=== PATIENT | male | born 1955 | race Caucasian/White ===

== ENCOUNTER 2016-09-23 10:11 | Emergency (ER) | payer MEDICARE ==
[~2016-09-23] VITALS: Ht 167.6 cm; Wt 70.0 kg
[~2016-09-23 10:11] MED LIST: ABIL5TAB PO; ALBU1AER INH; CLOT1%T TOPICAL; DEPA500T3 PO; GLUCTAB PO; LISI5 PO; SODI1 PO; TRIF1TAB2 PO; ZOCO40TA PO; ZOLP10TA3 PO
[2016-09-23 10:13] VITALS: BP 156/72; PULSE 80; RESP 20; TEMP 97.9; O2SAT 99
== END 2016-09-23 12:00 | disposition left against medical advice (07) ==
LOC: NED 10:11
DX: F40.8 Other phobic anxiety disorders (principal)
CPT/HCPCS: 99281

== ENCOUNTER 2017-03-17 09:32 | Emergency (ER) | payer MEDICARE, OTHER ==
[~2017-03-17] VITALS: Ht 175.3 cm; Wt 75.0 kg
[2017-03-17 09:36] VITALS: BP 168/84; PULSE 84; RESP 16; TEMP 98.1; O2SAT 98
[2017-03-17 10:55] LABS: AUTOMATED NEUTROPHIL # 4.6 TH/MM3 (1.8-7.7); BASOPHIL % 0.2 % (0.0-2.0); EOSINOPHIL # 0.3 TH/MM3 (0-0.4); EOSINOPHIL % 4.5 % (0.0-4.0); HEMATOCRIT 42.9 % (39.0-51.0); HEMO FLAGS DIFF FINAL; LYMPH % 20.5 % (9.0-44.0); LYMPHOCYTE # 1.4 TH/MM3 (1.0-4.8); MEAN CELL VOLUME 93.4 FL (80.0-100.0); MEAN CORPUSCULAR HEMOGLOBIN 32.7 PG (27.0-34.0); MONO % 9.6 % (0.0-8.0); NEUT % 65.2 % (16.0-70.0); PLATELET COUNT 144 TH/MM3 (150-450); RED BLOOD COUNT 4.59 MIL/MM3 (4.50-5.90); RED CELL DISTRIBUTION WIDTH 13.7 % (11.6-17.2)
[2017-03-17] MEDS ORDERED: LISI40TA PO (10:59)
[2017-03-17] MEDS ORDERED: VENTAER INH (10:59)
[2017-03-17] MEDS ORDERED: SODI1TAB PO (10:59)
[2017-03-17] MEDS ORDERED: SIMV40TA PO (10:59)
[2017-03-17] MEDS ORDERED: TRIF10TA PO (10:59)
[2017-03-17] MEDS ORDERED: ARTI1SOL3 EACH EYE (10:59)
[2017-03-17] MEDS ORDERED: HALO2TAB PO (10:59)
[2017-03-17] MEDS ORDERED: FLUT1SPR5 EACH NARE (10:59)
[2017-03-17] MEDS ORDERED: ARIP1TAB14 PO (10:59)
[2017-03-17] MEDS ORDERED: METO50TA PO (10:59)
[2017-03-17] MEDS ORDERED: OMEP20TA PO (10:59)
[2017-03-17] MEDS ORDERED: DEPA500T3 PO (10:59)
[2017-03-17 11:14] LABS: ANION GAP 9 MEQ/L (5-15); BICARBONATE 27.5 MEQ/L (21.0-32.0); BLOOD UREA NITROGEN 5 MG/DL (7-18); CHLORIDE 98 MEQ/L (98-107); GLOMERULAR FILTRATION RATE 123 ML/MIN (>89); POTASSIUM 4.4 MEQ/L (3.5-5.1); SODIUM (NA) 134 MEQ/L (136-145)
[2017-03-17 11:18] LABS: ALCOHOL LESS THAN 3 MG/DL (0-5)
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
[2017-03-17 12:31] VITALS: BP 145/71
--- NOTE | 2017-03-17 12:58 | PD ---
Data Data Last Documented VS Vital Signs Date Time Temp Pulse Resp B/P (MAP) Pulse Ox O2 Delivery O2 Flow Rate FiO2 03/17/17 12:31 67 18 145/71 (95) 98 03/17/17 09:36 98.1 Orders Orders Complete Blood Count With Diff (03/17/17 10:16) ^ Insert Iv (03/17/17 10:16) Basic Metabolic Panel (Bmp) (03/17/17 10:16) Drug Screen, Random Urine (03/17/17 10:16) Alcohol (Ethanol) (03/17/17 10:16) Labs Laboratory Tests Test 03/17/17 10:40 03/17/17 10:45 Urine Opiates Screen NEG Urine Barbiturates Screen NEG Urine Amphetamines Screen NEG Urine Benzodiazepines Screen NEG Urine Cocaine Screen NEG Urine Cannabinoids Screen NEG White Blood Count 7.0 TH/MM3 Red Blood Count 4.59 MIL/MM3 Hemoglobin 15.0 GM/DL Hematocrit 42.9 % Mean Corpuscular Volume 93.4 FL Mean Corpuscular Hemoglobin 32.7 PG Mean Corpuscular Hemoglobin Concent 35.0 % Red Cell Distribution Width 13.7 % Platelet Count 144 TH/MM3 Mean Platelet Volume 7.8 FL Neutrophils (%) (Auto) 65.2 % Lymphocytes (%) (Auto) 20.5 % Monocytes (%) (Auto) 9.6 % Eosinophils (%) (Auto) 4.5 % Basophils (%) (Auto) 0.2 % Neutrophils # (Auto) 4.6 TH/MM3 Lymphocytes # (Auto) 1.4 TH/MM3 Monocytes # (Auto) 0.7 TH/MM3 Eosinophils # (Auto) 0.3 TH/MM3 Basophils # (Auto) 0.0 TH/MM3 CBC Comment DIFF FINAL Differential Comment Blood Urea Nitrogen 5 MG/DL Creatinine 0.66 MG/DL Random Glucose 101 MG/DL Calcium Level 8.5 MG/DL Sodium Level 134 MEQ/L Potassium Level 4.4 MEQ/L Chloride Level 98 MEQ/L Carbon Dioxide Level 27.5 MEQ/L Anion Gap 9 MEQ/L Estimat Glomerular Filtration Rate 123 ML/MIN Ethyl Alcohol Level LESS THAN 3 MG/DL MDM Supervised Visit with [facility]: Yes Narrative Course The history, exam, and medical decision-making in the associated midlevel provider note were completed with my assistance. I reviewed and agree with the findings presented. I attest that I had a [id number] encounter with the patient on the same day, and personally performed and documented my assessment and findings in the medical record. *My assessment and Findings: This is a 61-year-old male who has a history of schizophrenia who presents to the emergency department just needing someplace to stay for a while. He says he was getting frustrated his house. He denies any suicidal ideation or homicidal ideation. He appears safe and is not decompensated. He follows up with [facility]. I think he can safely be discharged. Diagnosis Primary Impression: Paranoid schizophrenia Referrals: [facility] (Out patient) [facility] Patient Instructions: General Instructions, Schizoaffective Disorder (ED) Departure Forms: Tests/Procedures Additional Instruction: [facility] for follow-up Continue medication as prescribed Return immediately with any acute worsening of symptoms Disposition: 01 DISCHARGE HOME Condition: Stable Sara Lockett MD Mar 17, 2017 12:58
== END 2017-03-17 12:40 | disposition home or self-care (01) ==
LOC: NEPD 09:32
DX: F20.0 Paranoid schizophrenia (principal)
CPT/HCPCS: 80048; 80307; 85025; 99283

== ENCOUNTER 2018-05-25 21:08 | Inpatient (IN) ==
[2018-05-25] MEDS ORDERED: Sod Chloride 0.9% Inj 1,000 ML IV.CONT SCH (21:45)
--- NOTE | 2018-05-25 21:49 | CT ---
EXAM DATE: 05/25/2018 9:44 PM EST AGE/SEX: 62 years / Male INDICATIONS: STROKE ALERT. Altered mental status. Gargled speech. CLINICAL DATA: This is the patient's initial encounter. Patient reports that signs and symptoms have been present for 1 day and indicates a pain score of Nonresponsive. MEDICAL/SURGICAL HISTORY: Non-responsive. Non-responsive. RADIATION DOSE: 56.35 CTDI (mGy) COMPARISON: No prior exams available for comparison. TECHNIQUE: CT of the head without contrast. Using automated exposure control and adjustment of the mA and/or kV according to patient size, radiation dose was kept as low as reasonably achievable to ob tain optimal diagnostic quality images. DICOM format image data is available electronically for revi ew and comparison. FINDINGS: Cerebrum: The ventricles are normal for age. No evidence of midline shift, mass lesion, hemorrhage o r acute infarction. No extraaxial fluid collections are seen. Posterior Fossa: The cerebellum and brainstem are intact. The 4th ventricle is midline. The cerebe llopontine angle is unremarkable. Extracranial: The visualized portion of the orbits is intact. Skull: The calvaria is intact. No evidence of skull fracture. CONCLUSION: 1. No acute intracranial abnormality. Report was called by Dr. Simon to Dr. Bailon 9:46 PM] Electronically signed by: Charlie Salcido MD Board Certified Radiologist 05/25/2018 9:47 PM [facility] Deleon
--- NOTE | 2018-05-25 21:58 | CT ---
EXAM DATE: 05/25/2018 9:55 PM EST AGE/SEX: 62 years / Male INDICATIONS: STROKE ALERT. Altered mental status. Garbled speech. CLINICAL DATA: This is the patient's initial encounter. Patient reports that signs and symptoms have been present for 1 day and indicates a pain score of Nonresponsive. MEDICAL/SURGICAL HISTORY: Non-responsive. Non-responsive. RADIATION DOSE: 217.64 CTDI (mGy) COMPARISON: No prior exams available for comparison. TECHNIQUE: CT of the head after intravenous administration of 40 ml Visipaque 320 (iodixanol) nonio salma water-soluble contrast as a single exam dose. Using automated exposure control and adjustment of the mA and/or kV according to patient size, radiation dose was kept as low as reasonably achievable to obtain optimal diagnostic quality images. DICOM format image data is available electronically for review and comparison. FINDINGS: 1. CBF (<30%) Volume (ml): 0 2. Perfusion (Tmax>6.0s) Volume (ml): 0 3. Mismatch Volume (ml) (Tmax>6.0 - CBF): 0 CONCLUSION: Physiological brain perfusion parameters with RAPID analysis as above. The decision for consideration of therapy is multi factorial and multi disciplinary relying on subjec tive and objective clinical data. This data is not construed or intended to be the sole determinant of treatment eligibility. Electronically signed by: Charlie Salcido MD Board Certified Radiologist 05/25/2018 9:56 PM MIKO Deleon
--- NOTE | 2018-05-25 21:58 | CT ---
EXAM DATE: 05/25/2018 9:53 PM EST AGE/SEX: 62 years / Male INDICATIONS: STROKE ALERT. Altered mental status. Garbled speech. CLINICAL DATA: This is the patient's initial encounter. Patient reports that signs and symptoms have been present for 1 day and indicates a pain score of Nonresponsive. MEDICAL/SURGICAL HISTORY: Non-responsive. Non-responsive. RADIATION DOSE: 9.82 CTDI (mGy) COMPARISON: [facility] – [place] CEREBRAL PERF W CONTRAST W 3D, 05/25/2018. . TECHNIQUE: Volumetric scanning was performed using a multi-row detector CT scanner during bolus infu rashawn of 60 ml Visipaque 320 (iodixanol) nonionic water-soluble contrast as a cumulative dose for mul tiple exams. The data was post processed with a variety of visualization algorithms including full volume maximum intensity projection, multi-planar sliding thin slab reformation, curved planar reform ation, and surface rendering techniques. Using automated exposure control and adjustment of the mA a nd/or kV according to patient size, radiation dose was kept as low as reasonably achievable to obtain optimal diagnostic quality images. DICOM format image data is available electronically for review a nd comparison. FINDINGS: Anterior Circulation: Intracranial Carotid Arteries: Patent. CARINA: There is no evidence for aneurysm, vessel truncation or stenosis, and no evidence for vascular m alformation. MCA: There is no evidence for aneurysm, vessel truncation or stenosis, and no evidence for vascular m alformation. Posterior Circulation: Distal Vertebral Arteries: Distal Vertebral arteries are symetrical and patent. Basilar Artery: There is no evidence for aneurysm, vessel truncation or stenosis, and no evidence for vascular malformation. CLASS B DRIVER and Cerebellar Branches: There is no evidence for aneurysm, vessel truncation or stenosis, and no evidence for vascular malformation. CONCLUSION: 1. Negative CTA examination of the head. Specifically, no evidence for large vessel occlusion. Report was called by [ ] Dr. Simon to Dr. Clayton at 9:55 PM. Electronically signed by: Charlie Salcido MD Board Certified Radiologist 05/25/2018 9:56 PM MIKO Deleon
--- NOTE | 2018-05-25 22:10 | CT ---
EXAM DATE: 05/25/2018 10:03 PM EST AGE/SEX: 62 years / Male INDICATIONS: STROKE ALERT. Altered mental status. Garbled speech. CLINICAL DATA: This is the patient's initial encounter. Patient reports that signs and symptoms have been present for 1 day and indicates a pain score of Nonresponsive. MEDICAL/SURGICAL HISTORY: Non-responsive. Non-responsive. RADIATION DOSE: 9.82 CTDI (mGy) COMPARISON: No prior exams available for comparison. TECHNIQUE: Volumetric scanning was performed using a multirow detector CT scanner during bolus infus ion of 60 ml Omnipaque 350 (iohexol) nonionic water-soluble contrast as a single exam dose. The da ta was postprocessed with a variety of visualization algorithms including full-volume maximum intensi ty projection, multiplanar sliding thin-slab reformation, curved-planar reformation, and surface-rend ering techniques. Using automated exposure control and adjustment of the mA and/or kV according to p atient size, radiation dose was kept as low as reasonably achievable to obtain optimal diagnostic juhi lity images. DICOM format image data is available electronically for review and comparison. FINDINGS: Aortic Arch: Minimal calcific plaque is seen origin of the arch vessels. Right Carotid: There is calcific plaque origin of the right internal carotid without soft component compromise the lumen by less than 50%. Left Carotid: Calcific plaque origin of the left carotid without soft component comprising lumen by less than 50%. Vertebrals: Both vertebrals are small. Basilar artery is patent. Percent stenosis is calculated using the diameter of the stenotic region over the diameter of the nor mal distal internal carotid artery. CONCLUSION: 1. Moderate atherosclerotic calcific vascular disease without hemodynamically significant stenosis, worse on the right than the left. Other calcific plaque I do not see evidence for a source of emboli. Electronically signed by: Rafael Carson MD Board Certified Radiologist 05/25/2018 10:09 PM EST
[2018-05-25] MEDS ORDERED: Naloxone Inj 0.4 MG/ML Vial IV.PUSH ONE (22:11)
--- NOTE | 2018-05-25 22:21 | XR ---
EXAM DATE: 05/25/2018 10:17 PM EST AGE/SEX: 62 years / Male INDICATIONS: Stroke alert. CLINICAL DATA: This is the patient's initial encounter. Patient reports that signs and symptoms have been present for 1 day and indicates a pain score of Nonresponsive. MEDICAL/SURGICAL HISTORY: Non-responsive. Non-responsive. COMPARISON: [facility] – [place], CHEST SINGLE AP, 04/09/2013. . FINDINGS: A single AP view of the chest demonstrates the lungs to be symmetrically aerated without evidence of mass, infiltrate or effusion. The cardiomediastinal contours are unremarkable. Osseous structures a re intact. CONCLUSION: Negative for acute process Electronically signed by: Rafael Casron MD Board Certified Radiologist 05/25/2018 10:19 PM EST
--- NOTE | 2018-05-25 22:31 | ED ---
HPI General Chief Complaint: Stroke Alert Stated Complaint: ams/evac Time Seen by Provider: 05/25/18 21:29 Source: patient and EMS Mode of arrival: EMS Limitations: altered mental status History of Present Illness HPI Narrative: 62-year-old male presents to the emergency department from local intermediate by EMS transport after intermediate staff noticed patient to have some confusion and slurred speech as well as appeared to be slightly off balance with ambulation. Patient's symptoms are noted to have occurred reportedly sometime between 8 to 8:15 PM and 830 to 8:45 PM per special duty nurse report as patient was gone for approximately 30 minutes on a walk outside without supervision. Patient had reportedly been in his normal state of well- being without any acute psychotic events or escalating until health issues. No recent illness. Patient is a resident of intermediate with history of schizophrenia hypertension and diabetes. According to paramedics patient in route to the hospital had some slurring of speech appeared to be mildly somnolent so they administered a one-time dose of Narcan 0.4 mg IV with minimal response. Here patient has definite slurring of speech appears to be mildly confused. Patient with difficulty answering simple questions. Onset (ago): minute(s) Time: 08:40 Last Observed Normal: 08:00 Timing confirmed by: caregiver (longterm staff) Location: Reports speech, ataxia and altered History of same: No Severity: moderate Quality: Reports weak Relieving factors: none Exacerbating factors: other (unknown) Context: Reports other (unknown) On Anticoagulants: No Associated symptoms: Reports seizures (unknown), syncope (unknown) and weakness ; Denies chest pain, cough, diaphoresis, fever/chills, headaches, loss of appetite, malaise, nausea/vomiting and vertigo Treatments Prior to Arrival: Reports other (narcan 0.4 mg iv) Related Data Home Medications Medication Instructions Recorded Confirmed amlodipine 5 mg PO DAILY 05/26/18 05/26/18 aripiprazole 20 mg PO DAILY 05/26/18 05/26/18 divalproex 500 mg PO QID 05/26/18 05/26/18 fluticasone 1 spray INTRANASAL DAILY 05/26/18 05/26/18 metformin 500 mg PO BID 05/26/18 05/26/18 omeprazole 20 mg PO DAILY 05/26/18 05/26/18 terbinafine HCl 250 mg PO DAILY 05/26/18 05/26/18 Allergies Allergy/AdvReac Type Severity Reaction Status Date / Time lithium Allergy Severe PT NOT Verified 05/25/18 22:25 SURE BUT SAYS IT MAKES HIM SICK Phenothiazines Allergy Severe Hives Verified 05/25/18 22:25 bupropion Allergy Unknown Hives Verified 05/25/18 22:25 Review of Systems ROS: all other systems reviewed are negative PMFSH History History Provided By: Medical Record ([facility] records: Hypertension diabetes schizophrenia) 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 NIHSS: 3 SKIN: Focused skin assessment warm/dry. HEAD: Atraumatic. Normocephalic. EYES: Pupils equal and round. No scleral icterus. No injection or drainage. ENT: No nasal bleeding or discharge. Mucous membranes pink and moist. NECK: Trachea midline. No JVD. CARDIOVASCULAR: Regular rate and rhythm. No murmur appreciated. RESPIRATORY: No accessory muscle use. Clear to auscultation. Breath sounds equal bilaterally. GASTROINTESTINAL: Abdomen soft, non-tender, nondistended. Hepatic and splenic margins not palpable. MUSCULOSKELETAL: No obvious deformities. No clubbing. No cyanosis. No edema. NEUROLOGICAL: Awake and alert. No obvious cranial nerve deficits. Motor grossly within normal limits except mild weakness of LLE. Slurred speech and some expressive aphasia. Course Initial Documented Vital Signs Pulse Oximetry 97 05/25/18 21:25 Last Documented Vital Signs Temperature 98.4 F 05/27/18 01:00 Pulse Rate 65 05/27/18 01:30 Respiratory Rate 18 05/26/18 20:00 Blood Pressure 126/59 L 05/27/18 01:30 Pulse Oximetry 92 L 05/27/18 01:30 Medical Decision Making MDM Narrative Medical decision making narrative: 62-year-old male presents to the emergency department by EMS transport after last seen normal approximately 8:15 PM by the reported intermediate staff. Patient reportedly went outside for walking and with visible presents for approximately 30 minutes and when he returned he seemed mildly confused with slurring of speech and some mild gait ataxia. At that point in time EMS was called and upon their arrival around 845 they noted some persistent slurring of speech and some mild gait ataxia. Also noted in route to have some mild worsening somnolent received a one-time dose of Narcan with minimal response or improvement EMS called stroke alert from the field which was carried out into the emergency department. Patient unclear as to source of neurologic findings patient does have history of schizophrenia may have mild exacerbation of underlying mental health condition versus recent trauma versus seizure versus TIA versus CVA versus encephalopathy. Patient's case discussed in detail with on-call neurologist and sent emergently to CT for imaging with CTA and perfusion studies ordered. Unlikely patient will be criterion for TPA. Informed by nursing staff prior to being sent to CT patient yelled out and became aggressive with the staff and required request of physical and chemical restraints. Patient was also reported per paramedics to have some urinary incontinence; this was not originally reported. Discussed patient with neurologist Dr. Clayton. No TPA per Dr Clayton. CT brain noncontrast reveals no acute abnormality per reading radiologist. CTA does reveal no large vessel occlusion. Imaging studies negative for acute process. Patient now very somnolent after receiving Ativan 1 mg IV for marked agitation. Will monitor in the emergency department while patient is metabolizing administered Ativan to see if symptoms of presentation have resolved. Patient continues to be with slurring of speech suspect that symptoms may be related to seizure activity and/or seizure activity and exacerbation of his schizophrenia or just exacerbation of his schizophrenia. Valproic acid level is in therapeutic range of the lab values are grossly within normal limits including urine drug screen being negative. Patient's case discussed with on-call asset protection greeter for ongoing management of encephalopathy. Medical Screen Exam Complete: Yes Emergency Medical Condition: Yes Lab Data Result diagrams: 05/27/18 04:22 05/27/18 04:22 Lab Results 05/25/18 05/25/18 05/25/18 Range/Units 00:34 00:34 21:27 WBC (4.0-11.0) th/mm3 RBC (4.50-5.90) mil/mm3 Hgb (13.0-17.0) gm/dL POC Hgb (Calc) 12.2 L (13.0-17.0) g/dL Hct (39.0-51.0) % POC Hct 36.0 L (39-51.0) % MCV (80.0-100.0) fL MCH (27.0-34.0) pg MCHC (32.0-36.0) % RDW (11.6-17.2) % Plt Count (150-450) th/mm3 MPV (7.0-11.0) fL Neut % (Auto) (16.0-70.0) % Lymph % (Auto) (9.0-44.0) % [place] % (Auto) (0.0-8.0) % Eos % (Auto) (0.0-4.0) % Baso % (Auto) (0.0-2.0) % Neut # (Auto) (1.8-7.7) th/mm3 Lymph # (Auto) (1.0-4.8) th/mm3 [place] # (Auto) (0.0-0.9) th/mm3 Eos # (Auto) (0.0-0.4) th/mm3 Baso # (Auto) (0.0-0.2) th/mm3 WBC Differential Differential Comment PT (9.8-11.6) sec INR Ratio APTT (23.4-31.7) sec Puncture Site Patient Temperature O2 Saturation (90-100) % ABG pH (7.380-7.420) ABG pCO2 (38-42) mmHg ABG pO2 (61-120) mmHg ABG HCO3 (22-26) mmol/L ABG O2 Content (12.0-20.0) Vol % ABG Base Excess (-2-2) mmol/L ABG Methemoglobin (0-2) % Emmanuel Test Hemoglobin (12.0-16.0) G/DL Carboxyhemoglobin (0-4) % O2 Delivery Device Inspired O2 % Critical Value POC Sodium 138 (137-144) mmol/L Sodium 137 (136-145) meq/L POC Potassium 3.7 (3.6-5.0) mmol/L Potassium 3.6 (3.5-5.1) meq/L POC Chloride 98 L (102-111) mmol/L Chloride 102 (98-107) meq/L Carbon Dioxide 27.1 (21.0-32.0) meq/L Anion Gap 8 (5-15) meq/L POC BUN 12 (5-21) mg/dL BUN 11 (7-18) mg/dL Creatinine 0.77 (0.60-1.30) mg/dL POC Creatinine 0.7 (0.6-1.3) mg/dL Estimated GFR Greater than 89 (>89) mL/min POC Glucose 146 H (68-110) mg/dL Random Glucose 146 H (74-106) mg/dL Lactic Acid (0.4-2.0) mmol/L Calcium 8.0 L (8.5-10.1) mg/dL Phosphorus (2.5-4.9) mg/dL Magnesium 1.6 (1.5-2.5) mg/dL Total Bilirubin 0.3 (0.2-1.0) mg/dL AST 14 L (15-37) U/L ALT 18 (12-78) U/L Alkaline Phosphatase 58 (45-117) U/L Ammonia (11-32) mcmol/L Total Creatine Kinase (39-308) U/L Troponin I (0.02-0.05) ng/mL Total Protein 7.0 (6.4-8.2) g/dL Albumin 3.5 (3.4-5.0) g/dL TSH 2.800 (0.358-3.740) uIU/mL Urine Color (Yellw/Straw) Urine Clarity (Clear) Urine pH (5.0-8.5) Ur Specific [place] (1.002-1.035) Urine Protein (Neg-Trace) mg/dL Urine Glucose (UA) (Negative) mg/dL Urine Ketones (Negative) mg/dL Urine Occult Blood (Negative) Urine Nitrate (Negative) Urine Bilirubin (Negative) Urine Urobilinogen (Less than 2) mg/dL Ur Leukocyte Esterase (Negative) Urine RBC (0-3) /hpf Urine WBC (0-5) /hpf Urine Bacteria (None) /hpf Urine Mucus (Occasional) /lpf Micro UA Comment Ur Microscopic Review Urine Culture Comments Nasal Screen MRSA (PCR) (Negative) Salicylates (2.8-20.0) mg/dL Urine Opiates Screen (Neg) Acetaminophen (10.0-30.0) mcg/mL Ur Barbiturates Screen (Neg) Valproic Acid (50-100) mcg/mL Ur Amphetamines Screen (Neg) U Benzodiazepines Scrn (Neg) Urine Cocaine Screen (Neg) U Cannabinoids Screen (Neg) Serum Alcohol Less than 3 (0-5) mg/dL Blood Type Blood Type Recheck Antibody Screen 05/25/18 05/25/18 05/25/18 Range/Units 21:27 21:27 21:27 WBC (4.0-11.0) th/mm3 RBC (4.50-5.90) mil/mm3 Hgb (13.0-17.0) gm/dL POC Hgb (Calc) (13.0-17.0) g/dL Hct (39.0-51.0) % POC Hct (39-51.0) % MCV (80.0-100.0) fL MCH (27.0-34.0) pg MCHC (32.0-36.0) % RDW (11.6-17.2) % Plt Count (150-450) th/mm3 MPV (7.0-11.0) fL Neut % (Auto) (16.0-70.0) % Lymph % (Auto) (9.0-44.0) % [place] % (Auto) (0.0-8.0) % Eos % (Auto) (0.0-4.0) % Baso % (Auto) (0.0-2.0) % Neut # (Auto) (1.8-7.7) th/mm3 Lymph # (Auto) (1.0-4.8) th/mm3 [place] # (Auto) (0.0-0.9) th/mm3 Eos # (Auto) (0.0-0.4) th/mm3 Baso # (Auto) (0.0-0.2) th/mm3 WBC Differential Differential Comment PT (9.8-11.6) sec INR Ratio APTT (23.4-31.7) sec Puncture Site Patient Temperature O2 Saturation (90-100) % ABG pH (7.380-7.420) ABG pCO2 (38-42) mmHg ABG pO2 (61-120) mmHg ABG HCO3 (22-26) mmol/L ABG O2 Content (12.0-20.0) Vol % ABG Base Excess (-2-2) mmol/L ABG Methemoglobin (0-2) % Emmanuel Test Hemoglobin (12.0-16.0) G/DL Carboxyhemoglobin (0-4) % O2 Delivery Device Inspired O2 % Critical Value POC Sodium (137-144) mmol/L Sodium (136-145) meq/L POC Potassium (3.6-5.0) mmol/L Potassium (3.5-5.1) meq/L POC Chloride (102-111) mmol/L Chloride (98-107) meq/L Carbon Dioxide (21.0-32.0) meq/L Anion Gap (5-15) meq/L POC BUN (5-21) mg/dL BUN (7-18) mg/dL Creatinine (0.60-1.30) mg/dL POC Creatinine (0.6-1.3) mg/dL Estimated GFR (>89) mL/min POC Glucose (68-110) mg/dL Random Glucose (74-106) mg/dL Lactic Acid (0.4-2.0) mmol/L Calcium (8.5-10.1) mg/dL Phosphorus (2.5-4.9) mg/dL Magnesium (1.5-2.5) mg/dL Total Bilirubin (0.2-1.0) mg/dL AST (15-37) U/L ALT (12-78) U/L Alkaline Phosphatase (45-117) U/L Ammonia (11-32) mcmol/L Total Creatine Kinase (39-308) U/L Troponin I (0.02-0.05) ng/mL Total Protein (6.4-8.2) g/dL Albumin (3.4-5.0) g/dL TSH (0.358-3.740) uIU/mL Urine Color (Yellw/Straw) Urine Clarity (Clear) Urine pH (5.0-8.5) Ur Specific [place] (1.002-1.035) Urine Protein (Neg-Trace) mg/dL Urine Glucose (UA) (Negative) mg/dL Urine Ketones (Negative) mg/dL Urine Occult Blood (Negative) Urine Nitrate (Negative) Urine Bilirubin (Negative) Urine Urobilinogen (Less than 2) mg/dL Ur Leukocyte Esterase (Negative) Urine RBC (0-3) /hpf Urine WBC (0-5) /hpf Urine Bacteria (None) /hpf Urine Mucus (Occasional) /lpf Micro UA Comment Ur Microscopic Review Urine Culture Comments Nasal Screen MRSA (PCR) (Negative) Salicylates Less than 1.7 L (2.8-20.0) mg/dL Urine Opiates Screen (Neg) Acetaminophen Less than 2.0 L (10.0-30.0) mcg/mL Ur Barbiturates Screen (Neg) Valproic Acid 61 (50-100) mcg/mL Ur Amphetamines Screen (Neg) U Benzodiazepines Scrn (Neg) Urine Cocaine Screen (Neg) U Cannabinoids Screen (Neg) Serum Alcohol (0-5) mg/dL Blood Type A Positive Blood Type Recheck Required Antibody Screen Negative 05/25/18 05/25/18 05/25/18 Range/Units 21:27 21:27 21:27 WBC 5.7 (4.0-11.0) th/mm3 RBC 3.91 L (4.50-5.90) mil/mm3 Hgb 12.7 L (13.0-17.0) gm/dL POC Hgb (Calc) (13.0-17.0) g/dL Hct 37.1 L (39.0-51.0) % POC Hct (39-51.0) % MCV 94.9 (80.0-100.0) fL MCH 32.4 (27.0-34.0) pg MCHC 34.2 (32.0-36.0) % RDW 13.4 (11.6-17.2) % Plt Count 155 (150-450) th/mm3 MPV 7.9 (7.0-11.0) fL Neut % (Auto) 51.1 (16.0-70.0) % Lymph % (Auto) 38.3 (9.0-44.0) % [place] % (Auto) 9.2 H (0.0-8.0) % Eos % (Auto) 1.0 (0.0-4.0) % Baso % (Auto) 0.4 (0.0-2.0) % Neut # (Auto) 2.9 (1.8-7.7) th/mm3 Lymph # (Auto) 2.2 (1.0-4.8) th/mm3 [place] # (Auto) 0.5 (0.0-0.9) th/mm3 Eos # (Auto) 0.1 (0.0-0.4) th/mm3 Baso # (Auto) 0.0 (0.0-0.2) th/mm3 WBC Differential . Differential Comment Auto diff final PT (9.8-11.6) sec INR Ratio APTT (23.4-31.7) sec Puncture Site Patient Temperature O2 Saturation (90-100) % ABG pH (7.380-7.420) ABG pCO2 (38-42) mmHg ABG pO2 (61-120) mmHg ABG HCO3 (22-26) mmol/L ABG O2 Content (12.0-20.0) Vol % ABG Base Excess (-2-2) mmol/L ABG Methemoglobin (0-2) % Emmanuel Test Hemoglobin (12.0-16.0) G/DL Carboxyhemoglobin (0-4) % O2 Delivery Device Inspired O2 % Critical Value POC Sodium (137-144) mmol/L Sodium (136-145) meq/L POC Potassium (3.6-5.0) mmol/L Potassium (3.5-5.1) meq/L POC Chloride (102-111) mmol/L Chloride (98-107) meq/L Carbon Dioxide (21.0-32.0) meq/L Anion Gap (5-15) meq/L POC BUN (5-21) mg/dL BUN (7-18) mg/dL Creatinine (0.60-1.30) mg/dL POC Creatinine (0.6-1.3) mg/dL Estimated GFR (>89) mL/min POC Glucose (68-110) mg/dL Random Glucose (74-106) mg/dL Lactic Acid (0.4-2.0) mmol/L Calcium (8.5-10.1) mg/dL Phosphorus (2.5-4.9) mg/dL Magnesium (1.5-2.5) mg/dL Total Bilirubin (0.2-1.0) mg/dL AST (15-37) U/L ALT (12-78) U/L Alkaline Phosphatase (45-117) U/L Ammonia (11-32) mcmol/L Total Creatine Kinase 91 (39-308) U/L Troponin I Less than 0.02 L (0.02-0.05) ng/mL Total Protein (6.4-8.2) g/dL Albumin (3.4-5.0) g/dL TSH (0.358-3.740) uIU/mL Urine Color (Yellw/Straw) Urine Clarity (Clear) Urine pH (5.0-8.5) Ur Specific [place] (1.002-1.035) Urine Protein (Neg-Trace) mg/dL Urine Glucose (UA) (Negative) mg/dL Urine Ketones (Negative) mg/dL Urine Occult Blood (Negative) Urine Nitrate (Negative) Urine Bilirubin (Negative) Urine Urobilinogen (Less than 2) mg/dL Ur Leukocyte Esterase (Negative) Urine RBC (0-3) /hpf Urine WBC (0-5) /hpf Urine Bacteria (None) /hpf Urine Mucus (Occasional) /lpf Micro UA Comment Ur Microscopic Review Urine Culture Comments Nasal Screen MRSA (PCR) (Negative) Salicylates (2.8-20.0) mg/dL Urine Opiates Screen (Neg) Acetaminophen (10.0-30.0) mcg/mL Ur Barbiturates Screen (Neg) Valproic Acid (50-100) mcg/mL Ur Amphetamines Screen (Neg) U Benzodiazepines Scrn (Neg) Urine Cocaine Screen (Neg) U Cannabinoids Screen (Neg) Serum Alcohol (0-5) mg/dL Blood Type Blood Type Recheck Antibody Screen 05/25/18 05/25/18 05/25/18 Range/Units 21:28 22:21 23:50 WBC (4.0-11.0) th/mm3 RBC (4.50-5.90) mil/mm3 Hgb (13.0-17.0) gm/dL POC Hgb (Calc) (13.0-17.0) g/dL Hct (39.0-51.0) % POC Hct (39-51.0) % MCV (80.0-100.0) fL MCH (27.0-34.0) pg MCHC (32.0-36.0) % RDW (11.6-17.2) % Plt Count (150-450) th/mm3 MPV (7.0-11.0) fL Neut % (Auto) (16.0-70.0) % Lymph % (Auto) (9.0-44.0) % [place] % (Auto) (0.0-8.0) % Eos % (Auto) (0.0-4.0) % Baso % (Auto) (0.0-2.0) % Neut # (Auto) (1.8-7.7) th/mm3 Lymph # (Auto) (1.0-4.8) th/mm3 [place] # (Auto) (0.0-0.9) th/mm3 Eos # (Auto) (0.0-0.4) th/mm3 Baso # (Auto) (0.0-0.2) th/mm3 WBC Differential Differential Comment PT (9.8-11.6) sec INR Ratio APTT (23.4-31.7) sec Puncture Site Right radial Patient Temperature 98.6 O2 Saturation 92 (90-100) % ABG pH 7.42 (7.380-7.420) ABG pCO2 38 (38-42) mmHg ABG pO2 79 (61-120) mmHg ABG HCO3 24 (22-26) mmol/L ABG O2 Content 17.9 (12.0-20.0) Vol % ABG Base Excess 0.2 (-2-2) mmol/L ABG Methemoglobin 0.8 (0-2) % Emmanuel Test Present Hemoglobin 13.9 (12.0-16.0) G/DL Carboxyhemoglobin 3.6 (0-4) % O2 Delivery Device Room air Inspired O2 21 % Critical Value No POC Sodium (137-144) mmol/L Sodium (136-145) meq/L POC Potassium (3.6-5.0) mmol/L Potassium (3.5-5.1) meq/L POC Chloride (102-111) mmol/L Chloride (98-107) meq/L Carbon Dioxide (21.0-32.0) meq/L Anion Gap (5-15) meq/L POC BUN (5-21) mg/dL BUN (7-18) mg/dL Creatinine (0.60-1.30) mg/dL POC Creatinine (0.6-1.3) mg/dL Estimated GFR (>89) mL/min POC Glucose 144 H 128 H (68-110) mg/dL Random Glucose (74-106) mg/dL Lactic Acid (0.4-2.0) mmol/L Calcium (8.5-10.1) mg/dL Phosphorus (2.5-4.9) mg/dL Magnesium (1.5-2.5) mg/dL Total Bilirubin (0.2-1.0) mg/dL AST (15-37) U/L ALT (12-78) U/L Alkaline Phosphatase (45-117) U/L Ammonia (11-32) mcmol/L Total Creatine Kinase (39-308) U/L Troponin I (0.02-0.05) ng/mL Total Protein (6.4-8.2) g/dL Albumin (3.4-5.0) g/dL TSH (0.358-3.740) uIU/mL Urine Color (Yellw/Straw) Urine Clarity (Clear) Urine pH (5.0-8.5) Ur Specific [place] (1.002-1.035) Urine Protein (Neg-Trace) mg/dL Urine Glucose (UA) (Negative) mg/dL Urine Ketones (Negative) mg/dL Urine Occult Blood (Negative) Urine Nitrate (Negative) Urine Bilirubin (Negative) Urine Urobilinogen (Less than 2) mg/dL Ur Leukocyte Esterase (Negative) Urine RBC (0-3) /hpf Urine WBC (0-5) /hpf Urine Bacteria (None) /hpf Urine Mucus (Occasional) /lpf Micro UA Comment Ur Microscopic Review Urine Culture Comments Nasal Screen MRSA (PCR) (Negative) Salicylates (2.8-20.0) mg/dL Urine Opiates Screen (Neg) Acetaminophen (10.0-30.0) mcg/mL Ur Barbiturates Screen (Neg) Valproic Acid (50-100) mcg/mL Ur Amphetamines Screen (Neg) U Benzodiazepines Scrn (Neg) Urine Cocaine Screen (Neg) U Cannabinoids Screen (Neg) Serum Alcohol (0-5) mg/dL Blood Type Blood Type Recheck Antibody Screen 05/26/18 05/26/18 05/26/18 Range/Units 00:34 00:34 00:50 WBC (4.0-11.0) th/mm3 RBC (4.50-5.90) mil/mm3 Hgb (13.0-17.0) gm/dL POC Hgb (Calc) (13.0-17.0) g/dL Hct (39.0-51.0) % POC Hct (39-51.0) % MCV (80.0-100.0) fL MCH (27.0-34.0) pg MCHC (32.0-36.0) % RDW (11.6-17.2) % Plt Count (150-450) th/mm3 MPV (7.0-11.0) fL Neut % (Auto) (16.0-70.0) % Lymph % (Auto) (9.0-44.0) % [place] % (Auto) (0.0-8.0) % Eos % (Auto) (0.0-4.0) % Baso % (Auto) (0.0-2.0) % Neut # (Auto) (1.8-7.7) th/mm3 Lymph # (Auto) (1.0-4.8) th/mm3 [place] # (Auto) (0.0-0.9) th/mm3 Eos # (Auto) (0.0-0.4) th/mm3 Baso # (Auto) (0.0-0.2) th/mm3 WBC Differential Differential Comment PT (9.8-11.6) sec INR Ratio APTT (23.4-31.7) sec Puncture Site Patient Temperature O2 Saturation (90-100) % ABG pH (7.380-7.420) ABG pCO2 (38-42) mmHg ABG pO2 (61-120) mmHg ABG HCO3 (22-26) mmol/L ABG O2 Content (12.0-20.0) Vol % ABG Base Excess (-2-2) mmol/L ABG Methemoglobin (0-2) % Emmanuel Test Hemoglobin (12.0-16.0) G/DL Carboxyhemoglobin (0-4) % O2 Delivery Device Inspired O2 % Critical Value POC Sodium (137-144) mmol/L Sodium (136-145) meq/L POC Potassium (3.6-5.0) mmol/L Potassium (3.5-5.1) meq/L POC Chloride (102-111) mmol/L Chloride (98-107) meq/L Carbon Dioxide (21.0-32.0) meq/L Anion Gap (5-15) meq/L POC BUN (5-21) mg/dL BUN (7-18) mg/dL Creatinine (0.60-1.30) mg/dL POC Creatinine (0.6-1.3) mg/dL Estimated GFR (>89) mL/min POC Glucose (68-110) mg/dL Random Glucose (74-106) mg/dL Lactic Acid 3.5 H (0.4-2.0) mmol/L Calcium (8.5-10.1) mg/dL Phosphorus (2.5-4.9) mg/dL Magnesium (1.5-2.5) mg/dL Total Bilirubin (0.2-1.0) mg/dL AST (15-37) U/L ALT (12-78) U/L Alkaline Phosphatase (45-117) U/L Ammonia 28 (11-32) mcmol/L Total Creatine Kinase (39-308) U/L Troponin I (0.02-0.05) ng/mL Total Protein (6.4-8.2) g/dL Albumin (3.4-5.0) g/dL TSH (0.358-3.740) uIU/mL Urine Color (Yellw/Straw) Urine Clarity (Clear) Urine pH (5.0-8.5) Ur Specific [place] (1.002-1.035) Urine Protein (Neg-Trace) mg/dL Urine Glucose (UA) (Negative) mg/dL Urine Ketones (Negative) mg/dL Urine Occult Blood (Negative) Urine Nitrate (Negative) Urine Bilirubin (Negative) Urine Urobilinogen (Less than 2) mg/dL Ur Leukocyte Esterase (Negative) Urine RBC (0-3) /hpf Urine WBC (0-5) /hpf Urine Bacteria (None) /hpf Urine Mucus (Occasional) /lpf Micro UA Comment Ur Microscopic Review Urine Culture Comments Nasal Screen MRSA (PCR) (Negative) Salicylates (2.8-20.0) mg/dL Urine Opiates Screen Neg (Neg) Acetaminophen (10.0-30.0) mcg/mL Ur Barbiturates Screen Neg (Neg) Valproic Acid (50-100) mcg/mL Ur Amphetamines Screen Neg (Neg) U Benzodiazepines Scrn Neg (Neg) Urine Cocaine Screen Neg (Neg) U Cannabinoids Screen Neg (Neg) Serum Alcohol (0-5) mg/dL Blood Type Blood Type Recheck Antibody Screen 05/26/18 05/26/18 05/26/18 Range/Units 00:50 02:28 05:10 WBC (4.0-11.0) th/mm3 RBC (4.50-5.90) mil/mm3 Hgb (13.0-17.0) gm/dL POC Hgb (Calc) (13.0-17.0) g/dL Hct (39.0-51.0) % POC Hct (39-51.0) % MCV (80.0-100.0) fL MCH (27.0-34.0) pg MCHC (32.0-36.0) % RDW (11.6-17.2) % Plt Count (150-450) th/mm3 MPV (7.0-11.0) fL Neut % (Auto) (16.0-70.0) % Lymph % (Auto) (9.0-44.0) % [place] % (Auto) (0.0-8.0) % Eos % (Auto) (0.0-4.0) % Baso % (Auto) (0.0-2.0) % Neut # (Auto) (1.8-7.7) th/mm3 Lymph # (Auto) (1.0-4.8) th/mm3 [place] # (Auto) (0.0-0.9) th/mm3 Eos # (Auto) (0.0-0.4) th/mm3 Baso # (Auto) (0.0-0.2) th/mm3 WBC Differential Differential Comment PT (9.8-11.6) sec INR Ratio APTT (23.4-31.7) sec Puncture Site Patient Temperature O2 Saturation (90-100) % ABG pH (7.380-7.420) ABG pCO2 (38-42) mmHg ABG pO2 (61-120) mmHg ABG HCO3 (22-26) mmol/L ABG O2 Content (12.0-20.0) Vol % ABG Base Excess (-2-2) mmol/L ABG Methemoglobin (0-2) % Emmanuel Test Hemoglobin (12.0-16.0) G/DL Carboxyhemoglobin (0-4) % O2 Delivery Device Inspired O2 % Critical Value POC Sodium (137-144) mmol/L Sodium (136-145) meq/L POC Potassium (3.6-5.0) mmol/L Potassium (3.5-5.1) meq/L POC Chloride (102-111) mmol/L Chloride (98-107) meq/L Carbon Dioxide (21.0-32.0) meq/L Anion Gap (5-15) meq/L POC BUN (5-21) mg/dL BUN (7-18) mg/dL Creatinine (0.60-1.30) mg/dL POC Creatinine (0.6-1.3) mg/dL Estimated GFR (>89) mL/min POC Glucose (68-110) mg/dL Random Glucose (74-106) mg/dL Lactic Acid 3.9 H (0.4-2.0) mmol/L Calcium (8.5-10.1) mg/dL Phosphorus (2.5-4.9) mg/dL Magnesium (1.5-2.5) mg/dL Total Bilirubin (0.2-1.0) mg/dL AST (15-37) U/L ALT (12-78) U/L Alkaline Phosphatase (45-117) U/L Ammonia (11-32) mcmol/L Total Creatine Kinase 82 (39-308) U/L Troponin I Less than 0.02 L (0.02-0.05) ng/mL Total Protein (6.4-8.2) g/dL Albumin (3.4-5.0) g/dL TSH (0.358-3.740) uIU/mL Urine Color Yellow (Yellw/Straw) Urine Clarity Clear (Clear) Urine pH 6.0 (5.0-8.5) Ur Specific [place] 1.036 H (1.002-1.035) Urine Protein Negative (Neg-Trace) mg/dL Urine Glucose (UA) Negative (Negative) mg/dL Urine Ketones Trace H (Negative) mg/dL Urine Occult Blood Negative (Negative) Urine Nitrate Negative (Negative) Urine Bilirubin Negative (Negative) Urine Urobilinogen Less than 2 (Less than 2) mg/dL Ur Leukocyte Esterase Negative (Negative) Urine RBC 1 (0-3) /hpf Urine WBC 1 (0-5) /hpf Urine Bacteria Rare H (None) /hpf Urine Mucus Few H (Occasional) /lpf Micro UA Comment Cath-culture ind Ur Microscopic Review Not Reportable Urine Culture Comments Cath-cult indicated Nasal Screen MRSA (PCR) (Negative) Salicylates (2.8-20.0) mg/dL Urine Opiates Screen (Neg) Acetaminophen (10.0-30.0) mcg/mL Ur Barbiturates Screen (Neg) Valproic Acid (50-100) mcg/mL Ur Amphetamines Screen (Neg) U Benzodiazepines Scrn (Neg) Urine Cocaine Screen (Neg) U Cannabinoids Screen (Neg) Serum Alcohol (0-5) mg/dL Blood Type Blood Type Recheck Antibody Screen 05/26/18 05/26/18 05/26/18 Range/Units 06:10 06:10 06:19 WBC (4.0-11.0) th/mm3 RBC (4.50-5.90) mil/mm3 Hgb (13.0-17.0) gm/dL POC Hgb (Calc) (13.0-17.0) g/dL Hct (39.0-51.0) % POC Hct (39-51.0) % MCV (80.0-100.0) fL MCH (27.0-34.0) pg MCHC (32.0-36.0) % RDW (11.6-17.2) % Plt Count (150-450) th/mm3 MPV (7.0-11.0) fL Neut % (Auto) (16.0-70.0) % Lymph % (Auto) (9.0-44.0) % [place] % (Auto) (0.0-8.0) % Eos % (Auto) (0.0-4.0) % Baso % (Auto) (0.0-2.0) % Neut # (Auto) (1.8-7.7) th/mm3 Lymph # (Auto) (1.0-4.8) th/mm3 [place] # (Auto) (0.0-0.9) th/mm3 Eos # (Auto) (0.0-0.4) th/mm3 Baso # (Auto) (0.0-0.2) th/mm3 WBC Differential Differential Comment PT (9.8-11.6) sec INR Ratio APTT (23.4-31.7) sec Puncture Site Patient Temperature O2 Saturation (90-100) % ABG pH (7.380-7.420) ABG pCO2 (38-42) mmHg ABG pO2 (61-120) mmHg ABG HCO3 (22-26) mmol/L ABG O2 Content (12.0-20.0) Vol % ABG Base Excess (-2-2) mmol/L ABG Methemoglobin (0-2) % Emmanuel Test Hemoglobin (12.0-16.0) G/DL Carboxyhemoglobin (0-4) % O2 Delivery Device Inspired O2 % Critical Value POC Sodium (137-144) mmol/L Sodium (136-145) meq/L POC Potassium (3.6-5.0) mmol/L Potassium (3.5-5.1) meq/L POC Chloride (102-111) mmol/L Chloride (98-107) meq/L Carbon Dioxide (21.0-32.0) meq/L Anion Gap (5-15) meq/L POC BUN (5-21) mg/dL BUN (7-18) mg/dL Creatinine (0.60-1.30) mg/dL POC Creatinine (0.6-1.3) mg/dL Estimated GFR (>89) mL/min POC Glucose 139 H (68-110) mg/dL Random Glucose (74-106) mg/dL Lactic Acid 2.4 H (0.4-2.0) mmol/L Calcium (8.5-10.1) mg/dL Phosphorus (2.5-4.9) mg/dL Magnesium (1.5-2.5) mg/dL Total Bilirubin (0.2-1.0) mg/dL AST (15-37) U/L ALT (12-78) U/L Alkaline Phosphatase (45-117) U/L Ammonia (11-32) mcmol/L Total Creatine Kinase (39-308) U/L Troponin I (0.02-0.05) ng/mL Total Protein (6.4-8.2) g/dL Albumin (3.4-5.0) g/dL TSH (0.358-3.740) uIU/mL Urine Color (Yellw/Straw) Urine Clarity (Clear) Urine pH (5.0-8.5) Ur Specific [place] (1.002-1.035) Urine Protein (Neg-Trace) mg/dL Urine Glucose (UA) (Negative) mg/dL Urine Ketones (Negative) mg/dL Urine Occult Blood (Negative) Urine Nitrate (Negative) Urine Bilirubin (Negative) Urine Urobilinogen (Less than 2) mg/dL Ur Leukocyte Esterase (Negative) Urine RBC (0-3) /hpf Urine WBC (0-5) /hpf Urine Bacteria (None) /hpf Urine Mucus (Occasional) /lpf Micro UA Comment Ur Microscopic Review Urine Culture Comments Nasal Screen MRSA (PCR) Not detected (Negative) Salicylates (2.8-20.0) mg/dL Urine Opiates Screen (Neg) Acetaminophen (10.0-30.0) mcg/mL Ur Barbiturates Screen (Neg) Valproic Acid (50-100) mcg/mL Ur Amphetamines Screen (Neg) U Benzodiazepines Scrn (Neg) Urine Cocaine Screen (Neg) U Cannabinoids Screen (Neg) Serum Alcohol (0-5) mg/dL Blood Type Blood Type Recheck Antibody Screen 05/26/18 05/26/18 05/26/18 Range/Units 10:45 20:04 23:37 WBC (4.0-11.0) th/mm3 RBC (4.50-5.90) mil/mm3 Hgb (13.0-17.0) gm/dL POC Hgb (Calc) (13.0-17.0) g/dL Hct (39.0-51.0) % POC Hct (39-51.0) % MCV (80.0-100.0) fL MCH (27.0-34.0) pg MCHC (32.0-36.0) % RDW (11.6-17.2) % Plt Count (150-450) th/mm3 MPV (7.0-11.0) fL Neut % (Auto) (16.0-70.0) % Lymph % (Auto) (9.0-44.0) % [place] % (Auto) (0.0-8.0) % Eos % (Auto) (0.0-4.0) % Baso % (Auto) (0.0-2.0) % Neut # (Auto) (1.8-7.7) th/mm3 Lymph # (Auto) (1.0-4.8) th/mm3 [place] # (Auto) (0.0-0.9) th/mm3 Eos # (Auto) (0.0-0.4) th/mm3 Baso # (Auto) (0.0-0.2) th/mm3 WBC Differential Differential Comment PT (9.8-11.6) sec INR Ratio APTT (23.4-31.7) sec Puncture Site Patient Temperature O2 Saturation (90-100) % ABG pH (7.380-7.420) ABG pCO2 (38-42) mmHg ABG pO2 (61-120) mmHg ABG HCO3 (22-26) mmol/L ABG O2 Content (12.0-20.0) Vol % ABG Base Excess (-2-2) mmol/L ABG Methemoglobin (0-2) % Emmanuel Test Hemoglobin (12.0-16.0) G/DL Carboxyhemoglobin (0-4) % O2 Delivery Device Inspired O2 % Critical Value POC Sodium (137-144) mmol/L Sodium (136-145) meq/L POC Potassium (3.6-5.0) mmol/L Potassium (3.5-5.1) meq/L POC Chloride (102-111) mmol/L Chloride (98-107) meq/L Carbon Dioxide (21.0-32.0) meq/L Anion Gap (5-15) meq/L POC BUN (5-21) mg/dL BUN (7-18) mg/dL Creatinine (0.60-1.30) mg/dL POC Creatinine (0.6-1.3) mg/dL Estimated GFR (>89) mL/min POC Glucose 119 H 90 86 (68-110) mg/dL Random Glucose (74-106) mg/dL Lactic Acid (0.4-2.0) mmol/L Calcium (8.5-10.1) mg/dL Phosphorus (2.5-4.9) mg/dL Magnesium (1.5-2.5) mg/dL Total Bilirubin (0.2-1.0) mg/dL AST (15-37) U/L ALT (12-78) U/L Alkaline Phosphatase (45-117) U/L Ammonia (11-32) mcmol/L Total Creatine Kinase (39-308) U/L Troponin I (0.02-0.05) ng/mL Total Protein (6.4-8.2) g/dL Albumin (3.4-5.0) g/dL TSH (0.358-3.740) uIU/mL Urine Color (Yellw/Straw) Urine Clarity (Clear) Urine pH (5.0-8.5) Ur Specific [place] (1.002-1.035) Urine Protein (Neg-Trace) mg/dL Urine Glucose (UA) (Negative) mg/dL Urine Ketones (Negative) mg/dL Urine Occult Blood (Negative) Urine Nitrate (Negative) Urine Bilirubin (Negative) Urine Urobilinogen (Less than 2) mg/dL Ur Leukocyte Esterase (Negative) Urine RBC (0-3) /hpf Urine WBC (0-5) /hpf Urine Bacteria (None) /hpf Urine Mucus (Occasional) /lpf Micro UA Comment Ur Microscopic Review Urine Culture Comments Nasal Screen MRSA (PCR) (Negative) Salicylates (2.8-20.0) mg/dL Urine Opiates Screen (Neg) Acetaminophen (10.0-30.0) mcg/mL Ur Barbiturates Screen (Neg) Valproic Acid (50-100) mcg/mL Ur Amphetamines Screen (Neg) U Benzodiazepines Scrn (Neg) Urine Cocaine Screen (Neg) U Cannabinoids Screen (Neg) Serum Alcohol (0-5) mg/dL Blood Type Blood Type Recheck Antibody Screen 05/27/18 05/27/18 05/27/18 Range/Units 04:22 04:22 04:22 WBC 5.7 (4.0-11.0) th/mm3 RBC 3.87 L (4.50-5.90) mil/mm3 Hgb 12.9 L (13.0-17.0) gm/dL POC Hgb (Calc) (13.0-17.0) g/dL Hct 36.8 L (39.0-51.0) % POC Hct (39-51.0) % MCV 95.1 (80.0-100.0) fL MCH 33.2 (27.0-34.0) pg MCHC 35.0 (32.0-36.0) % RDW 13.9 (11.6-17.2) % Plt Count 151 (150-450) th/mm3 MPV 7.6 (7.0-11.0) fL Neut % (Auto) 58.5 (16.0-70.0) % Lymph % (Auto) 31.6 (9.0-44.0) % [place] % (Auto) 8.7 H (0.0-8.0) % Eos % (Auto) 0.7 (0.0-4.0) % Baso % (Auto) 0.5 (0.0-2.0) % Neut # (Auto) 3.3 (1.8-7.7) th/mm3 Lymph # (Auto) 1.8 (1.0-4.8) th/mm3 [place] # (Auto) 0.5 (0.0-0.9) th/mm3 Eos # (Auto) 0.0 (0.0-0.4) th/mm3 Baso # (Auto) 0.0 (0.0-0.2) th/mm3 WBC Differential . Differential Comment Auto diff final PT 10.8 (9.8-11.6) sec INR 1.1 Ratio APTT 26.1 (23.4-31.7) sec Puncture Site Patient Temperature O2 Saturation (90-100) % ABG pH (7.380-7.420) ABG pCO2 (38-42) mmHg ABG pO2 (61-120) mmHg ABG HCO3 (22-26) mmol/L ABG O2 Content (12.0-20.0) Vol % ABG Base Excess (-2-2) mmol/L ABG Methemoglobin (0-2) % Emmanuel Test Hemoglobin (12.0-16.0) G/DL Carboxyhemoglobin (0-4) % O2 Delivery Device Inspired O2 % Critical Value POC Sodium (137-144) mmol/L Sodium 143 (136-145) meq/L POC Potassium (3.6-5.0) mmol/L Potassium 3.4 L (3.5-5.1) meq/L POC Chloride (102-111) mmol/L Chloride 108 H (98-107) meq/L Carbon Dioxide 26.7 (21.0-32.0) meq/L Anion Gap 8 (5-15) meq/L POC BUN (5-21) mg/dL BUN 11 (7-18) mg/dL Creatinine 0.64 (0.60-1.30) mg/dL POC Creatinine (0.6-1.3) mg/dL Estimated GFR Greater than 89 (>89) mL/min POC Glucose (68-110) mg/dL Random Glucose 94 (74-106) mg/dL Lactic Acid (0.4-2.0) mmol/L Calcium 7.8 L (8.5-10.1) mg/dL Phosphorus 3.4 (2.5-4.9) mg/dL Magnesium 1.7 (1.5-2.5) mg/dL Total Bilirubin 0.5 (0.2-1.0) mg/dL AST 16 (15-37) U/L ALT 16 (12-78) U/L Alkaline Phosphatase 49 (45-117) U/L Ammonia (11-32) mcmol/L Total Creatine Kinase (39-308) U/L Troponin I (0.02-0.05) ng/mL Total Protein 5.7 L D (6.4-8.2) g/dL Albumin 2.8 L (3.4-5.0) g/dL TSH (0.358-3.740) uIU/mL Urine Color (Yellw/Straw) Urine Clarity (Clear) Urine pH (5.0-8.5) Ur Specific [place] (1.002-1.035) Urine Protein (Neg-Trace) mg/dL Urine Glucose (UA) (Negative) mg/dL Urine Ketones (Negative) mg/dL Urine Occult Blood (Negative) Urine Nitrate (Negative) Urine Bilirubin (Negative) Urine Urobilinogen (Less than 2) mg/dL Ur Leukocyte Esterase (Negative) Urine RBC (0-3) /hpf Urine WBC (0-5) /hpf Urine Bacteria (None) /hpf Urine Mucus (Occasional) /lpf Micro UA Comment Ur Microscopic Review Urine Culture Comments Nasal Screen MRSA (PCR) (Negative) Salicylates (2.8-20.0) mg/dL Urine Opiates Screen (Neg) Acetaminophen (10.0-30.0) mcg/mL Ur Barbiturates Screen (Neg) Valproic Acid (50-100) mcg/mL Ur Amphetamines Screen (Neg) U Benzodiazepines Scrn (Neg) Urine Cocaine Screen (Neg) U Cannabinoids Screen (Neg) Serum Alcohol (0-5) mg/dL Blood Type Blood Type Recheck Antibody Screen Imaging Data Radiologist's impression: Chest X-Ray 05/25/18 21:32 CONCLUSION: Negative for acute process Head CT 05/25/18 21:32 CONCLUSION: 1. No acute intracranial abnormality. Report was called by Dr. Simon to Dr. Bailon 9:46 PM] Head CTA 05/25/18 21:32 CONCLUSION: 1. Negative CTA examination of the head. Specifically, no evidence for large vessel occlusion. Report was called by [ ] Dr. Simon to Dr. Clayton at 9:55 PM. Neck CTA 05/25/18 21:32 CONCLUSION: 1. Moderate atherosclerotic calcific vascular disease without hemodynamically significant stenosis, worse on the right than the left. Other calcific plaque I do not see evidence for a source of emboli. CT CAD 05/25/18 21:33 CONCLUSION: Physiological brain perfusion parameters with RAPID analysis as above. The decision for consideration of therapy is multi factorial and multi disciplinary relying on subjective and objective clinical data. This data is not construed or intended to be the sole determinant of treatment eligibility. Carotid Doppler Study 05/26/18 00:00 CONCLUSION: Negative examination for a hemodynamically significant carotid stenosis. Rafael Carson MD FACR Discharge Plan Discharge Disposition Patient Disposition: ED Admit(ED Internal Use Only) Discharge Condition Condition: Stable Discharge Order Discharge Orders: ED Use Only Admit Order (Routine); Ordered 05/26/18 Ordered By: Daksha Bailon Discharge Details Diagnosis: Altered mental status, Metabolic encephalopathy, H/O schizophrenia Physicians Team ED Provider: Daksha Bailon Primary Care Provider: Calixto Oneill Attending Provider: Jhony Coburn Other Providers: Dann Nascimento ; Jamari Stark Discharge Interventions Interventions: ED Discharge Assessment Last Done: 05/26/18 06:07 Vital Signs Last Done: 05/26/18 04:35 Status ED Status: Left Department Discharge Information Discharge Date/Time: 05/26/18 06:09
--- NOTE | 2018-05-25 22:34 | MB ---
cc: Onofre Clayton MD, PhD DATE: 05/25/2018 REASON FOR CONSULTATION: Stroke alert. HISTORY OF PRESENT ILLNESS: This is a 63-year-old man who has a history of schizophrenia. a intermediate resident. Last seen normal 8:15 p.m., was outside, then after that had a mental status change. It is unclear whether he might have had a seizure or not, had difficulty with confusion, somnolence, difficulty speaking, came in as a stroke alert. It was felt that he had difficulty with his speech and confusion. Questionable left leg weakness but unclear whether this was due to lack of comprehension. NEUROLOGIC EXAMINATION: The patient is lethargic, having received Ativan for the CT scan. He follows simple commands only. He does try to speak but is not getting any words out. Very confused at the present time. Cranial nerves intact. Motor exam: He has no focal deficits. He withdraws both lower extremities equally. No sign of any weakness. CT brain is normal. CT angiogram head: No evidence of any large vessel occlusion. CT perfusion is normal with no sign of any perfusion deficit. Labs currently pending. Serum glucose is 144. IMPRESSION: Alteration in mental status. It is unclear whether this is a stroke. The CT perfusion is normal, which speaks against stroke. This may have been a seizure or postictal state. In view of the normal CT perfusion study, would recommend not starting TPA. We will evaluate him further with an MRI of the brain, EEG as well. Also, carotid ultrasound and echocardiogram. He is not a candidate for intervention as well given the above findings. Onofre Clayton MD, PhD XU/rm , 10:03 PM , 10:14 PM
[2018-05-25 23:30] LABS: Valproic Acid 61 mcg/mL (50-100)
[2018-05-25] MEDS ORDERED: Sod Chloride 0.9% Inj 1,000 ML IV.SIG SCH (23:45)
[2018-05-25 23:59] LABS: ABG Base Excess 0.2 mmol/L (-2-2); ABG PCO2 38 mmHg (38-42); ABG PO2 79 mmHg (61-120)
[2018-05-26 00:59] LABS: Baso % (Auto) 0.4 % (0.0-2.0); Eos # (Auto) 0.1 th/mm3 (0.0-0.4); Hematocrit 37.1 % (39.0-51.0); Hemoglobin 12.7 gm/dL (13.0-17.0); Lymph # (Auto) 2.2 th/mm3 (1.0-4.8); Lymph % (Auto) 38.3 % (9.0-44.0); Mean Corpuscular HGB Conc 34.2 % (32.0-36.0); Mean Corpuscular Hemoglobin 32.4 pg (27.0-34.0); Mean Corpuscular Volume 94.9 fL (80.0-100.0); Mean Platelet Volume 7.9 fL (7.0-11.0); Mono # (Auto) 0.5 th/mm3 (0.0-0.9); Mono % (Auto) 9.2 % (0.0-8.0); Neut # (Auto) 2.9 th/mm3 (1.8-7.7); Neut % (Auto) 51.1 % (16.0-70.0); Platelet Count 155 th/mm3 (150-450); Red Blood Count 3.91 mil/mm3 (4.50-5.90); Red Cell Distribution Width 13.4 % (11.6-17.2); White Blood Count 5.7 th/mm3 (4.0-11.0)
[2018-05-26 01:10] LABS: Bacteria,Urine Rare /hpf; Bilirubin,Urine Negative (Negative); Clarity,Urine Clear (Clear); Color,Urine Yellow (Yellw/Straw); Glucose,Urine (UA) Negative (Negative); Leukocyte Esterase,Urine Negative (Negative); Mucus,Urine Few /lpf (Occasional); Nitrite,Urine Negative (Negative); Specific Gravity,Urine 1.036 (1.002-1.035)
[2018-05-26 01:14] LABS: Amphetamine Screen,Urine Neg (Neg); Barbiturate Screen,Urine Neg (Neg); Cannabinoid Screen,Urine Neg (Neg); Cocaine Screen,Urine Neg (Neg)
[2018-05-26 01:15] LABS: Opiate Screen,Urine Neg (Neg)
[2018-05-26 01:15] LABS: Magnesium 1.6 mg/dL (1.5-2.5)
[2018-05-26 01:18] LABS: Alanine Aminotransferase 18 U/L (12-78); Albumin 3.5 g/dL (3.4-5.0); Anion Gap 8 meq/L (5-15); Aspartate Aminotransferase 14 U/L (15-37); Blood Urea Nitrogen 11 mg/dL (7-18); Carbon Dioxide 27.1 meq/L (21.0-32.0); Chloride 102 meq/L (98-107); Glomerular Filtration Rate Greater Than 89 mL/min (>89); Glucose,Random 146 mg/dL (74-106); Potassium 3.6 meq/L (3.5-5.1); Sodium 137 meq/L (136-145)
[2018-05-26 01:27] LABS: Alkaline Phosphatase 58 U/L (45-117)
[2018-05-26] MEDS ORDERED: Sod Chloride 0.9% Inj 1,000 ML IV.SIG SCH ×2 (02:00)
[2018-05-26] MEDS ORDERED: Acetaminophen 325 MG Tablet PO PRN (04:43)
[2018-05-26] MEDS ORDERED: Bisacodyl 10 MG Supp RECTAL PRN (04:43)
--- NOTE | 2018-05-26 04:48 | P.HPCC ---
History of Present Illness Primary Care Physician: Calixto Oneill History of Present Illness: 62-year-old gentleman with severe schizophrenia, however well controlled with medications, fdc resident, went for a walk last night, came back 30 minutes later, had a slurred speech and stumbling ataxic gait. Per paramedics report he was sort of somnolent and he received 1 dose of Narcan without any significant improvement. In the emergency department he presented with stable slurred speech, and mild left-sided weakness and a CAT scan and CTA studies including brain perfusion scan were negative. Just before transportation to CT he became extremely combative with staff and received 1 dose of Ativan, which resulted in somnolence. CT head and CTA studies were negative. The case was discussed with the neurologist on-call, the patient is not a candidate for TPA or any further intervention by neurology or IR. He has been admitted to ICU for frequent neuro checks, an airway observation, possible intubation for an airway protection. Inpatient Certification: I certify that the inpatient services were ordered in accordance with Medicare regulations governing the order. This includes certification that hospital inpatient services are reasonable and necessary and in the case of services not specified as inpatient-only under 42 CFR 419.22(n), that they are appropriately provided as inpatient services in accordance to with the 2-midnight benchmark under 43 CFR 412.3(e) Estimated Total Length of Stay (Days): 5 Plans for Post Hospital Care: Not yet determined Review of Systems unobtainable due to mental status PMFSH - History History Provided By: Clarifier Operator / EMT - Medical History Medical History: Medical History (Last Updated 05/25/18 @ 23:59 by Catrachita Robles RN) Constipation Diabetes HTN (hypertension) Schizophrenia - Surgical History Surgical History: Surgical History (Last Updated 05/25/18 @ 23:59 by Catrachita Robles RN) No history of previous surgery - Tobacco History Smoking Status: Unknown if ever smoked - Alcohol History How Often Do You Have a Drink Containing Alcohol: Unable to Obtain - Substance Use History Substance History: Unable to Obtain - Travel History Recent Travel in the [place] Within the Last 8 Weeks: No Recent Travel Out of the Country Within the Last 8 Weeks: No - Immunization History Tetanus Immunization: Unable to Assess Medications and Allergies Active Medications: Active Medications Amlodipine Besylate (Norvasc) 5 mg PO DAILY [facility] Aripiprazole (Abilify) 20 mg PO DAILY [facility] Divalproex Sodium (Depakote Er) 500 mg PO QID [facility] Fluticasone Propionate (Flonase Nasal [place]) 1 spray EACH NARE DAILY [facility] Sodium Chloride (Ns Inj) 1,000 mls @ 200 mls/hr IV.CONT .Q5H [facility] Last Admin: 05/25/18 22:30 Dose: 70 mls/hr Metformin HCl (Glucophage) 500 mg PO BID [facility] Non-Formulary Medication (Omeprazole [Omeprazole]) 20 mg PO DAILY [facility] Terbinafine HCl (Lamisil) 250 mg PO DAILY [facility] Allergies Allergy/AdvReac Type Severity Reaction Status Date / Time lithium Allergy Severe PT NOT Verified 05/25/18 22:25 SURE BUT SAYS IT MAKES HIM SICK Phenothiazines Allergy Severe Hives Verified 05/25/18 22:25 bupropion Allergy Unknown Hives Verified 05/25/18 22:25 Home Medications Medication Instructions Recorded Confirmed Type amlodipine 5 mg PO DAILY 05/26/18 05/26/18 History aripiprazole 20 mg PO DAILY 05/26/18 05/26/18 History divalproex 500 mg PO QID 05/26/18 05/26/18 History fluticasone 1 spray INTRANASAL DAILY 05/26/18 05/26/18 History metformin 500 mg PO BID 05/26/18 05/26/18 History omeprazole 20 mg PO DAILY 05/26/18 05/26/18 History terbinafine HCl 250 mg PO DAILY 05/26/18 05/26/18 History Results - Labs CBC & Chem 7: 05/25/18 21:27 05/25/18 00:34 Labs: Short CBC 05/25/18 Range/Units 21:27 WBC 5.7 (4.0-11.0) th/mm3 Hgb 12.7 L (13.0-17.0) gm/dL Hct 37.1 L (39.0-51.0) % Plt Count 155 (150-450) th/mm3 [facility] 05/25/18 00:34 Sodium 137 Potassium 3.6 Chloride 102 Carbon Dioxide 27.1 BUN 11 Creatinine 0.77 Calcium 8.0 L Cardiac Enzymes 05/25/18 Range/Units 21:27 Troponin I Less than 0.02 L (0.02-0.05) ng/mL Liver Function 12/13/18 Range/Units 00:34 Total Bilirubin 0.3 (0.2-1.0) mg/dL AST 14 L (15-37) U/L ALT 18 (12-78) U/L Alkaline Phosphatase 58 (45-117) U/L Albumin 3.5 (3.4-5.0) g/dL Urine 05/26/18 Range/Units 00:50 Urine Color Yellow (Yellw/Straw) Urine Clarity Clear (Clear) Urine pH 6.0 (5.0-8.5) Ur Specific [place] 1.036 H (1.002-1.035) Urine Protein Negative (Neg-Trace) mg/dL Urine Glucose (UA) Negative (Negative) mg/dL - Imaging Impressions Chest X-Ray 05/25/18 21:32 CONCLUSION: Negative for acute process Head CT 05/25/18 21:32 CONCLUSION: 1. No acute intracranial abnormality. Report was called by Dr. Simon to Dr. Bailon 9:46 PM] Head CTA 05/25/18 21:32 CONCLUSION: 1. Negative CTA examination of the head. Specifically, no evidence for large vessel occlusion. Report was called by [ ] Dr. Simon to Dr. Clayton at 9:55 PM. Neck CTA 05/25/18 21:32 CONCLUSION: 1. Moderate atherosclerotic calcific vascular disease without hemodynamically significant stenosis, worse on the right than the left. Other calcific plaque I do not see evidence for a source of emboli. CT CAD 05/25/18 21:33 CONCLUSION: Physiological brain perfusion parameters with RAPID analysis as above. The decision for consideration of therapy is multi factorial and multi disciplinary relying on subjective and objective clinical data. This data is not construed or intended to be the sole determinant of treatment eligibility. Exam Vital signs: Vital Signs 05/25/18 21:25 05/25/18 21:32 05/25/18 23:00 Temperature Pulse Rate 78 76 Respiratory Rate 22 Blood Pressure 167/77 H Pulse Oximetry 97 96 96 05/25/18 23:49 05/26/18 00:38 05/26/18 04:35 Temperature 98.3 F Pulse Rate 75 78 76 Respiratory Rate 17 22 22 Blood Pressure 135/81 171/82 H 178/83 H Pulse Oximetry 100 98 97 05/26/18 04:36 Temperature Pulse Rate Respiratory Rate Blood Pressure Pulse Oximetry 97 Intake & Output 05/25/18 05/25/18 05/26/18 06:59 18:59 06:59 Intake Total 3000 / 3000 Balance 3000 / 3000 Weight 67.7 kg Intake: IV 3000 / 3000 NS Inj 1,000 ML @ 1000 mls/hr 3000 / 3000 IV.SIG BOLUS MARKY Rx#:[id number] - Constitutional moderate distress - Routine HEENT Exam Head: Present: normocephalic, atraumatic Eye: Present: PERRL ENT: Present: mucous membranes moist - Routine Neck Exam Present: supple, full ROM. Absent: JVD, carotid bruit - Routine Respiratory Exam Absent: accessory muscle use, wheezes, crackles - Routine Cardiovascular Exam Present: RRR, S1, S2 - Routine Abdominal Exam Present: soft, normoactive bowel sounds - Routine Extremities Exam Absent: cyanosis, clubbing, edema - Routine Skin Exam Present: intact. Absent: cyanosis, erythema - Routine Neurological Exam Present: altered mental status, moving all extremities Septic Shock Reassessment Septic shock perfusion: reassessment completed Caprini VTE Risk Assessment Caprini VTE Risk Assessment: Moderate/High Risk (score >= 2) Caprini Risk Assessment Model: Point Value = 1 Point Value = 2 Point Value = 3 Point Value = 5 Age 41-60 Minor surgery BMI > 25 kg/m2 Swollen legs Varicose veins or History of unexplained or recurrent spontaneous Oral contraceptives or hormone replacement Sepsis (< 1 month) Serious lung disease, including pneumonia (< 1 month) Abnormal pulmonary function Acute myocardial infarction Congestive heart failure (< 1 month) History of inflammatory bowel disease Medical patient at bed rest Age 61-74 Arthroscopic surgery Major open surgery (> 45 min) Laparoscopic surgery (> 45 min) Malignancy Confined to bed (> 72 hours) Immobilizing plaster cast Central venous access Age >= 75 History of VTE Family history of VTE Factor V Leiden Prothrombin [id number] Lupus anticoagulant Anticardiolipin antibodies Elevated serum homocysteine Heparin-induced thrombocytopenia Other congenital or acquired thrombophilia Stroke (< 1 month) Elective arthroplasty Hip, pelvis, or leg fracture Acute spinal cord injury (< 1 month) Prophylaxis Regimen: Total Risk Factor Score Risk Level Prophylaxis Regimen 0-1 Low Early ambulation 2 Moderate Order ONE of the following: *Sequential Compression Device (SCD) *Heparin 5000 units SQ BID 3-4 Higher Order ONE of the following medications: *Heparin 5000 units SQ TID *Enoxaparin/Lovenox 40 mg SQ daily (WT < 150 kg, CrCl > 30 mL/min) *Enoxaparin/Lovenox 30 mg SQ daily (WT < 150 kg, CrCl > 10-29 mL/min) *Enoxaparin/Lovenox 30 mg SQ BID (WT < 150 kg, CrCl > 30 mL/min) AND/OR *Sequential Compression Device (SCD) 5 or more Highest Order ONE of the following medications: *Heparin 5000 units SQ TID (Preferred with Epidurals) *Enoxaparin/Lovenox 40 mg SQ daily (WT < 150 kg, CrCl > 30 mL/min) *Enoxaparin/Lovenox 30 mg SQ daily (WT < 150 kg, CrCl > 10-29 mL/min) *Enoxaparin/Lovenox 30 mg SQ BID (WT < 150 kg, CrCl > 30 mL/min) AND *Sequential Compression Device (SCD) Assessment and Plan - Assessment and Plan Plan: Altered mental status -Underlying psychosis -CT head and CTA negative -EEG pending -Neurology evaluation appreciated -Neurochecks per ICU protocol Schizophrenia -Abilify -Divalproex -Psychiatry evaluation Attention -Amlodipine Diabetes mellitus - Metformin -Insulin sliding scale DVT GI prophylaxis -Teds SCDs -Subcu heparin -Pantoprazole Level 2
[2018-05-26] MEDS ORDERED: Dextrose 50% in Water 50 ML Vial IV.PUSH PRN (05:52)
[2018-05-26 06:02] LABS: Creatine Kinase 82 U/L (39-308)
[2018-05-26] MEDS: Insulin NovoLOG Aspart Correctional Sugar Inj SQ SCH ×3 (06:27→21:13)
[2018-05-26] MEDS: Heparin - SQ 10,000 UNITS/ML Vial SQ SCH ×3 (06:27→21:26)
[2018-05-26] MEDS ORDERED: Sod Chloride 0.9% Inj 1,000 ML IV.CONT SCH (07:30)
[2018-05-26] MEDS: Famotidine PF Inj 20 MG/2 ML Vial IV.PUSH SCH ×2 (08:41→21:26)
--- NOTE | 2018-05-26 09:47 | US ---
EXAM DATE: 05/26/2018 9:44 AM EST AGE/SEX: 62 years / Male INDICATIONS: Altered mental status changes with slurred speech and ataxic gait. Carotid bruit. CLINICAL DATA: This is the patient's initial encounter. Patient reports that signs and symptoms have been present for 1 day and indicates a pain score of Nonresponsive. MEDICAL/SURGICAL HISTORY: Hypertension. Diabetes. Schizophrenia. Constipation. None. COMPARISON: No prior exams available for comparison. VELOCITY PARAMETERS: ICA/CCA Ratio: Right 0.9 , Left 0.65 ICA: Right 94 cm/sec, Left 62 cm/sec CCA: Right 104 cm/sec, Left 96 cm/sec ECA: Right 105 cm/sec, Left 100 cm/sec Vertebral: Right 70 cm/sec antegrade, Left 69 cm/sec antegrade FINDINGS: RIGHT CAROTID: There is no evidence for a hemodynamically significant carotid stenosis. Minimal int imal hyperplasia is present with scattered calcific plaque. LEFT CAROTID: There is no evidence for a hemodynamically significant carotid stenosis. Minimal inti mal hyperplasia is present with scattered calcific plaque. Flow is antegrade in both vertebral arteries. There are no ancillary masses or adenopathy. CONCLUSION: Negative examination for a hemodynamically significant carotid stenosis. Rafael Carson MD FACR Electronically signed by: Rafael Carson MD Board Certified Radiologist 05/26/2018 9:45 AM EST
[2018-05-26] MEDS: Divalproex 500 MG DR Tablet PO SCH ×4 (10:48→21:27)
[2018-05-26] MEDS: Senna/Docusate Sodium 8.6/50 MG Tablet PO SCH ×2 (10:49→21:27)
[2018-05-26] MEDS: Pantoprazole Sodium 20 MG DR Tablet PO SCH (10:49)
[2018-05-26] MEDS: amLODIPine 5 MG Tablet PO SCH (10:49)
--- NOTE | 2018-05-26 10:51 | ECG ---
Date Performed: 05/25/2018 Time Performed: 21:53:14 PTAGE: 62 years EKG: Sinus rhythm PROBABLE INFERIOR MYOCARDIAL INFARCTION ABNORMAL ECG PREVIOUS TRACING : 04/05/2007 00.50 No significant change from previous tracing noted. DOCTOR: Yvon Jensen Interpretating Date/Time 05/26/2018 10:49:15
--- NOTE | 2018-05-26 12:29 | P.CONPSY ---
Provisional Diagnosis Admission Date: May 26, 2018 04:28 [place].: Schizophrenia, delirium due to underlying medical condition History of Present Illness Service: medicine Primary Care Provider: Calixto Oneill History of Present Illness: The patient is a 62-year-old man, domiciled in [facility], single, unemployed, supported by [facility], with a psychiatric history of schizophrenia, multiple psychiatric hospitalizations, last one in 2013 as per collateral information, he is on Abilify 20 mg, Depakote 500 mg twice daily, outpatient at [facility], medical history of diabetes and hypertension, who was brought to the hospital because went for a walk last night, came back 30 minutes later, had a slurred speech and stumbling ataxic gait. Per paramedics report he was sort of somnolent and he received 1 dose of Narcan without any significant improvement. In the emergency department he presented with stable slurred speech, and mild left-sided weakness and a CAT scan and CTA studies including brain perfusion scan were negative. Just before transportation to CT he became extremely combative with staff and received 1 dose of Ativan, which resulted in somnolence. CT head and CTA studies were negative. The case was discussed with the neurologist on-call, the patient is not a candidate for TPA or any further intervention by neurology or IR. He has been admitted to ICU for frequent neuro checks, an airway observation, possible intubation for an airway protection. Patient was consulted to psychiatry to address potential psychosis. Chart reviewed. Collateral information from [facility] obtained. On my psychiatric evaluation I find a patient that is completely lethargic, somnolent, unable to provide any meaningful information for the psychiatric assessment. With encouragement he can open his eyes, but he immediately falls asleep and his speech is very incoherent. As per casework manager Renetta Swanson in guarded manner, the patient has been doing quite well medically and psychiatrically. He has been at baseline until yesterday when he all of a sudden became very altered. She clarifies that the patient has been compliant with his medications. She does not think that the patient has been using drugs or alcohol lately. [facility] - History History Provided By: Adult Education Instructor / EMT - Medical History Medical History: Medical History (Last Reviewed 05/26/18 @ 09:01 by Smitha [place] [employer], [employer]) Constipation Diabetes HTN (hypertension) Schizophrenia - Surgical History Surgical History: Surgical History (Last Reviewed 05/26/18 @ 07:56 by Joya Love) No history of previous surgery - Tobacco History Smoking Status: Cognitive impairment - Alcohol History How Often Do You Have a Drink Containing Alcohol: Unable to Obtain - Substance Use History Substance History: Unable to Obtain - Travel History Recent Travel in the [place] Within the Last 8 Weeks: No Recent Travel Out of the Country Within the Last 8 Weeks: No - Immunization History Tetanus Immunization: Unable to Assess Medications and Allergies Active Medications: Active Medications Acetaminophen (Tylenol) 650 mg PO Q6H PRN PRN Reason: PAIN 1-10 AND/OR FEVER >101F Al Hydroxide/Mg Hydroxide (Milk Of Francine Liq) 30 ml PO Q12H PRN PRN Reason: Mild Constipation Albuterol (Duoneb Neb (Prn)) 1 ampul NEB Q2HR NEB PRN PRN Reason: WHEEZING Amlodipine Besylate (Norvasc) 5 mg PO DAILY [facility] Last Admin: 05/26/18 10:49 Dose: Not Given Aripiprazole (Abilify) 20 mg PO DAILY [facility] Last Admin: 05/26/18 10:47 Dose: Not Given Bisacodyl (Dulcolax Supp) 10 mg RECTAL DAILY PRN PRN Reason: SEVERE CONSITIPATION Chlorhexidine Gluconate (Chlorhexidine 2% Cloth) 3 pack TOPICAL DAILY@0400 MARKY Stop: 06/01/18 03:59 Chlorhexidine Gluconate (Chlorhexidine 2% Cloth) 3 pack TOPICAL DAILY@0400 PRN PRN Reason: Extra cloth needed Stop: 06/01/18 03:59 Dextrose (D50w Vial) 50 ml IV.PUSH UNSCH PRN PRN Reason: PER HYPOGLYCEMIA PROTOCOL Divalproex Sodium (Depakote Dr) 500 mg PO QID [facility] Last Admin: 05/26/18 10:48 Dose: Not Given Famotidine (Pepcid Pf Inj) 20 mg IV.PUSH Q12HR [facility] Last Admin: 05/26/18 08:41 Dose: 20 mg Fluticasone Propionate (Flonase Nasal [place]) 1 spray EACH NARE DAILY [facility] Last Admin: 05/26/18 10:48 Dose: Not Given Glucagon (Glucagon Inj) 1 mg OTHER PRN PRN PRN Reason: for Hypoglycemia Protocol Heparin Sodium (Porcine) (Heparin Inj) 5,000 units SQ Q8H [facility] Last Admin: 12/14/18 06:27 Dose: 5,000 units Sodium Chloride (Ns Inj) 1,000 mls @ 70 mls/hr IV.CONT .[id number] [facility] Last Admin: 05/26/18 10:50 Dose: Not Given Insulin Aspart (Novolog Insulin Correctional Sugar Inj) 0 unit SQ Q6HR [facility]; Protocol Last Admin: 05/26/18 11:07 Dose: Not Given Lactulose (Lactulose Liq) 30 ml PO DAILY PRN PRN Reason: SEVERE CONSITIPATION Lorazepam (Ativan Inj) 1 mg IV.PUSH Q2H PRN PRN Reason: SEIZURES Metformin HCl (Glucophage) 500 mg PO BID [facility] Last Admin: 05/26/18 10:48 Dose: Not Given Pantoprazole Sodium (Protonix) 20 mg PO DAILY [facility] Last Admin: 05/26/18 10:49 Dose: Not Given Senna/Docusate Sodium (Janel-Colace) 1 tab PO BID [facility] Last Admin: 05/26/18 10:49 Dose: Not Given Sennosides (Senokot) 17.2 mg PO Q12H PRN PRN Reason: Moderate Constipation Sodium Chloride (Ns Flush) 2 ml IV.FLUSH BID [facility] Last Admin: 05/26/18 10:51 Dose: 2 ml Sodium Chloride (Ns Flush) 2 ml IV.FLUSH PRN PRN PRN Reason: FLUSH AFTER USING IV ACCESS Allergies Allergy/AdvReac Type Severity Reaction Status Date / Time lithium Allergy Severe PT NOT Verified 05/25/18 22:25 SURE BUT SAYS IT MAKES HIM SICK Phenothiazines Allergy Severe Hives Verified 05/25/18 22:25 bupropion Allergy Unknown Hives Verified 05/25/18 22:25 Home Medications Medication Instructions Recorded Confirmed Type amlodipine 5 mg PO DAILY 05/26/18 05/26/18 History aripiprazole 20 mg PO DAILY 05/26/18 05/26/18 History divalproex 500 mg PO QID 05/26/18 05/26/18 History fluticasone 1 spray INTRANASAL DAILY 05/26/18 05/26/18 History metformin 500 mg PO BID 05/26/18 05/26/18 History omeprazole 20 mg PO DAILY 05/26/18 05/26/18 History terbinafine HCl 250 mg PO DAILY 05/26/18 05/26/18 History Exam Vital signs: Vital Signs 05/25/18 21:25 05/25/18 21:32 05/25/18 23:00 Temperature Pulse Rate 78 76 Respiratory Rate 22 Blood Pressure 167/77 H Pulse Oximetry 97 96 96 05/25/18 23:49 05/26/18 00:38 05/26/18 04:35 Temperature 98.3 F Pulse Rate 75 78 76 Respiratory Rate 17 22 22 Blood Pressure 135/81 171/82 H 178/83 H Pulse Oximetry 100 98 97 05/26/18 04:36 05/26/18 05:25 05/26/18 05:56 Temperature Pulse Rate 70 83 Respiratory Rate 18 18 Blood Pressure 157/85 H 169/83 H Pulse Oximetry 97 05/26/18 06:00 05/26/18 06:04 05/26/18 06:29 Temperature 97.9 F Pulse Rate 77 75 80 Respiratory Rate 24 21 Blood Pressure 145/81 H Pulse Oximetry 98 97 05/26/18 06:30 05/26/18 06:34 05/26/18 07:00 Temperature Pulse Rate 75 75 76 Respiratory Rate 24 25 H 26 H Blood Pressure 166/112 H 165/81 H 164/80 H Pulse Oximetry 99 99 96 05/26/18 07:30 05/26/18 08:00 05/26/18 08:30 Temperature 99.0 F Pulse Rate 77 77 77 Respiratory Rate 24 24 25 H Blood Pressure 168/80 H 175/87 H 175/84 H Pulse Oximetry 96 96 97 05/26/18 09:00 05/26/18 09:30 05/26/18 09:36 Temperature Pulse Rate 77 78 78 Respiratory Rate 24 26 H 24 Blood Pressure 185/84 H 185/87 H 180/87 H Pulse Oximetry 98 98 98 05/26/18 09:47 05/26/18 09:56 05/26/18 10:00 Temperature Pulse Rate 78 75 75 Respiratory Rate 23 23 22 Blood Pressure 180/85 H 176/87 H Pulse Oximetry 97 98 98 05/26/18 10:11 05/26/18 10:26 05/26/18 10:41 Temperature Pulse Rate 74 75 75 Respiratory Rate 23 25 H 23 Blood Pressure 169/81 H 161/82 H 173/89 H Pulse Oximetry 98 98 98 05/26/18 10:53 Temperature Pulse Rate 75 Respiratory Rate 23 Blood Pressure 173/89 H Pulse Oximetry 98 Intake & Output 05/25/18 05/26/18 05/26/18 18:59 06:59 18:59 Intake Total 3000 / 3000 Balance 3000 / 3000 Weight 72.3 kg Intake: IV 3000 / 3000 NS Inj 1,000 ML @ 1000 mls/hr 3000 / 3000 IV.SIG BOLUS MARKY Rx#:[id number] Mental Status Examination Appearance: Appropriate Consciousness: Lethargic, Obtunded Orientation: Person Motor Activity: Abnormal gait Speech: Incoherent Language: Adequate Memory: Impaired Suicidal Ideation: No Suicidal Plan: No Suicidal Intention: No Homicidal Ideation: No Homicidal Plan: No Homicidal Intention: No Mental Status Exam Remarks: 50 due to level of lethargy Assessment and Plan - Assessment (1) Delirium Code(s): R41.0 - Disorientation, unspecified Status: Acute - Plan Plan: On my psychiatric evaluation I found the patient is very lethargic today, somnolent, difficult to arouse, hypoalert, unable to provide any meaningful information for the psychiatric assessment at the moment. As per collateral information from casework manager, the patient has been at baseline until yesterday when he went to take a walk around the residential facility and when he came back he was already altered. She cannot identify any signs or symptoms of acute psychosis in the last days. Patient has been compliant his medications. He has a psychiatric history of schizophrenia, he has been stable and Abilify 20 mg, Depakote 500 mg twice daily. Depakote level is 61. Place psychotropics in hold to avoid more sedation. Continue medical workup to rule out medical causes of altered mental status including full neurological workup with EEG, possible MRI and LP. I will follow-up. Justification for Continued Inpatient Stay: No admission in psychiatry indicated at the moment
--- NOTE | 2018-05-26 13:10 | ECHRPT ---
Indication: CVA/TIA CONCLUSIONS Normal left ventricular size. Wall thickness is measured at the upper limits of normal. The left ventricular systolic function is normal with an estimated ejection fraction in the range of 55-60%. Trace mitral valve regurgitation. There is trace tricuspid valve regurgitation. The estimated pulmonary arterial pressure is 28 mmHg. BP: 161 / 81 HR: 79 Rhythm: MEASUREMENTS (Male / Female) Normal Values Technical Quality:Fair 2D ECHO LV Diastolic Diameter PLAX 4.7 cm 4.2 - 5.9 / 3.9 - 5.3 cm LV Systolic Diameter PLAX 2.8 cm IVS Diastolic Thickness 1.1 cm 0.6 - 1.0 / 0.6 - 0.9 cm LVPW Diastolic Thickness 1.1 cm 0.6 - 1.0 / 0.6 - 0.9 cm LV Relative Wall Thickness 0.5 RV Internal Dim ED PLAX 2.4 cm LVOT Diameter 1.9 cm Aortic Root Diameter 3.1 cm LA Systolic Diameter LX 2.7 cm 3.0 - 4.0 / 2.7 - 3.8 cm DOPPLER AV Peak Velocity 153.0 cm/s AV Peak Gradient 9.4 mmHg LVOT Peak Velocity 119.0 cm/s LVOT Peak Gradient 5.7 mmHg AV Area Cont Eq pk 2.2 cm Mitral E Point Velocity 86.4 cm/s Mitral A Point Velocity 107.0 cm/s Mitral E to A Ratio 0.8 LV E' Lateral Velocity 13.5 cm/s Mitral E to LV E' Lateral Ratio 6.4 LV E' Septal Velocity 6.6 cm/s Mitral E to LV E' Septal Ratio 13.0 TR Peak Velocity 214.0 cm/s TR Peak Gradient 18.3 mmHg Right Atrial Pressure 10.0 mmHg Pulmonary Artery Systolic Pressu 28.3 mmHg Right Ventricular Systolic Press 28.3 mmHg PV Peak Velocity 95.0 cm/s PV Peak Gradient 3.6 mmHg FINDINGS LEFT VENTRICLE Normal left ventricular size. Wall thickness is measured at the upper limits of normal. The left ventricular systolic function is normal with an estimated ejection fraction in the range of 55-60%. RIGHT VENTRICLE Normal right ventricular size and systolic function. LEFT ATRIUM The left atrial size is normal. RIGHT ATRIUM The right atrial size is normal. ATRIAL SEPTUM Normal atrial septal thickness without atrial level shunting by limited color doppler interrogation. AORTA The aortic root and proximal ascending aorta are normal in size on limited imaging. MITRAL VALVE Trace mitral valve regurgitation. AORTIC VALVE Trileaflet aortic valve. No aortic valve stenosis or regurgitation. TRICUSPID VALVE There is trace tricuspid valve regurgitation. The estimated pulmonary arterial pressure is 28 mmHg. PULMONARY VALVE The pulmonary valve is not well visualized. VESSELS The inferior vena cava was not well visualized. PERICARDIUM No pericardial effusion. Saba Alberts MD, FACC (Electronically Signed) Final Date:26 May 2018 13:09
--- NOTE | 2018-05-26 19:20 | MG ---
cc: Dann Newell MD EEG NUMBER: [id number] CLINICAL HISTORY: Stroke alert, slurred speech, stumbling schizophrenia. MEDICATIONS: 1. Heparin. 2. Zofran. DESCRIPTION: Diffuse beta and alpha rhythms are noted. Recording overall is synchronous and symmetric. No hemisphere asymmetry is seen. No temporal lobe epilepsy or abnormalities in the temporal lobes are noted, especially the left temporal lobe. Hyperventilation is not performed. Photic stimulation is performed without significant posterior driving. IMPRESSION: A normal electroencephalogram. No evidence for a focal or diffuse abnormality. MD DEN Cárdenas/aki , 06:33 PM , 06:38 PM
[2018-05-27] MEDS ORDERED: Chlorhexidine Gluconate 2% 1 Pack (2 Cloths) TOPICAL PRN (04:00)
[2018-05-27] MEDS ORDERED: Chlorhexidine Gluconate 2% 1 Pack (2 Cloths) TOPICAL SCH (04:00)
[2018-05-27 04:56] LABS: Baso % (Auto) 0.5 % (0.0-2.0); Eos % (Auto) 0.7 % (0.0-4.0); Hematocrit 36.8 % (39.0-51.0); Hemoglobin 12.9 gm/dL (13.0-17.0); Lymph # (Auto) 1.8 th/mm3 (1.0-4.8); Lymph % (Auto) 31.6 % (9.0-44.0); Mean Corpuscular Hemoglobin 33.2 pg (27.0-34.0); Mean Corpuscular Volume 95.1 fL (80.0-100.0); Mean Platelet Volume 7.6 fL (7.0-11.0); Mono # (Auto) 0.5 th/mm3 (0.0-0.9); Mono % (Auto) 8.7 % (0.0-8.0); Neut # (Auto) 3.3 th/mm3 (1.8-7.7); Neut % (Auto) 58.5 % (16.0-70.0); Platelet Count 151 th/mm3 (150-450); Red Blood Count 3.87 mil/mm3 (4.50-5.90); Red Cell Distribution Width 13.9 % (11.6-17.2); White Blood Count 5.7 th/mm3 (4.0-11.0)
[2018-05-27 05:01] LABS: Activated Partial Thrombo Time 26.1 sec (23.4-31.7); INR 1.1 Ratio; Prothrombin Time 10.8 sec (9.8-11.6)
[2018-05-27 05:17] LABS: Alanine Aminotransferase 16 U/L (12-78); Albumin 2.8 g/dL (3.4-5.0); Anion Gap 8 meq/L (5-15); Aspartate Aminotransferase 16 U/L (15-37); Blood Urea Nitrogen 11 mg/dL (7-18); Calcium 7.8 mg/dL (8.5-10.1); Carbon Dioxide 26.7 meq/L (21.0-32.0); Chloride 108 meq/L (98-107); Glomerular Filtration Rate Greater Than 89 mL/min (>89); Glucose,Random 94 mg/dL (74-106); Magnesium 1.7 mg/dL (1.5-2.5); Potassium 3.4 meq/L (3.5-5.1); Sodium 143 meq/L (136-145)
[2018-05-27 05:19] LABS: Alkaline Phosphatase 49 U/L (45-117); Phosphorus 3.4 mg/dL (2.5-4.9); Total Protein 5.7 g/dL (6.4-8.2)
[2018-05-27] MEDS: Insulin NovoLOG Aspart Correctional Sugar Inj SQ SCH ×2 (06:00)
[2018-05-27] MEDS: Divalproex 500 MG DR Tablet PO SCH (08:25)
[2018-05-27] MEDS: Pantoprazole Sodium 20 MG DR Tablet PO SCH (08:26)
[2018-05-27] MEDS: Senna/Docusate Sodium 8.6/50 MG Tablet PO SCH (08:26)
[2018-05-27] MEDS: amLODIPine 5 MG Tablet PO SCH (08:26)
[2018-05-27] MEDS: Heparin - SQ 10,000 UNITS/ML Vial SQ SCH (08:27)
[2018-05-27] MEDS: Famotidine PF Inj 20 MG/2 ML Vial IV.PUSH SCH (08:28)
--- NOTE | 2018-05-27 10:04 | P.PNCC ---
Subjective Subjective Remarks/Hospital Course: 62-year-old gentleman with severe schizophrenia, however well controlled with medications, snf resident, went for a walk last night, came back 30 minutes later, had a slurred speech and stumbling ataxic gait. Per paramedics report he was sort of somnolent and he received 1 dose of Narcan without any significant improvement. In the emergency department he presented with stable slurred speech, and mild left-sided weakness and a CAT scan and CTA studies including brain perfusion scan were negative. Just before transportation to CT he became extremely combative with staff and received 1 dose of Ativan, which resulted in somnolence. CT head and CTA studies were negative. The case was discussed with the neurologist on-call, the patient is not a candidate for TPA or any further intervention by neurology or IR. He has been admitted to ICU for frequent neuro checks, an airway observation, possible intubation for an airway protection. 05/27: Awake alert interactive conversant this morning. Up in chair eating breakfast. Objective Vital Signs / I&O: Vital Signs 05/26/18 10:11 05/26/18 10:26 05/26/18 10:41 Temperature Pulse Rate 74 75 75 Respiratory Rate 23 25 H 23 Blood Pressure 169/81 H 161/82 H 173/89 H Pulse Oximetry 98 98 98 05/26/18 10:53 05/26/18 10:56 05/26/18 11:00 Temperature Pulse Rate 75 76 75 Respiratory Rate 23 26 H 25 H Blood Pressure 173/89 H 161/83 H Pulse Oximetry 98 98 99 05/26/18 11:11 05/26/18 11:26 05/26/18 11:41 Temperature Pulse Rate 75 76 77 Respiratory Rate 25 H 29 H 25 H Blood Pressure 171/86 H 178/84 H 153/77 H Pulse Oximetry 99 96 96 05/26/18 11:56 05/26/18 12:00 05/26/18 12:11 Temperature 99.0 F Pulse Rate 79 78 80 Respiratory Rate 26 H 24 25 H Blood Pressure 161/81 H 177/86 H Pulse Oximetry 96 97 96 05/26/18 12:26 05/26/18 12:41 05/26/18 12:56 Temperature Pulse Rate 78 79 77 Respiratory Rate 25 H 28 H 26 H Blood Pressure 179/89 H 162/80 H 173/86 H Pulse Oximetry 97 97 96 12/14/18 13:00 05/26/18 13:11 05/26/18 13:26 Temperature Pulse Rate 78 79 76 Respiratory Rate 23 24 23 Blood Pressure 175/93 H 160/77 H Pulse Oximetry 96 97 97 05/26/18 13:41 05/26/18 13:56 05/26/18 14:00 Temperature Pulse Rate 76 75 75 Respiratory Rate 23 25 H 23 Blood Pressure 173/84 H 159/82 H Pulse Oximetry 99 97 97 05/26/18 14:11 05/26/18 14:26 05/26/18 14:41 Temperature Pulse Rate 75 75 78 Respiratory Rate 25 H 23 21 Blood Pressure 173/89 H 174/86 H 173/101 H Pulse Oximetry 97 98 97 05/26/18 14:48 05/26/18 15:00 05/26/18 15:30 Temperature Pulse Rate 79 77 75 Respiratory Rate 22 23 23 Blood Pressure 173/84 H 171/86 H 159/75 H Pulse Oximetry 99 97 97 05/26/18 16:00 05/26/18 16:09 05/26/18 16:30 Temperature 100.0 F H Pulse Rate 73 74 76 Respiratory Rate 21 21 Blood Pressure 188/86 H 172/79 H 182/83 H Pulse Oximetry 97 97 96 05/26/18 17:00 05/26/18 17:03 05/26/18 17:30 Temperature Pulse Rate 75 75 73 Respiratory Rate Blood Pressure 189/86 H 180/77 H 149/72 H Pulse Oximetry 97 96 96 05/26/18 18:00 05/26/18 18:30 05/26/18 19:00 Temperature Pulse Rate 76 72 71 Respiratory Rate Blood Pressure 157/74 H 160/74 H 166/78 H Pulse Oximetry 99 97 98 05/26/18 19:30 05/26/18 20:00 05/26/18 20:30 Temperature 98.6 F Pulse Rate 72 70 75 Respiratory Rate 18 Blood Pressure 161/76 H 141/112 H 188/80 H Pulse Oximetry 98 95 93 L 05/26/18 20:58 05/26/18 21:00 05/26/18 21:30 Temperature Pulse Rate 71 71 71 Respiratory Rate Blood Pressure 134/64 157/75 H 178/80 H Pulse Oximetry 93 L 94 L 94 L 05/26/18 21:40 05/26/18 22:00 05/26/18 23:00 Temperature Pulse Rate 72 73 Respiratory Rate Blood Pressure 122/58 L 137/62 Pulse Oximetry 95 93 L 94 L 05/26/18 23:30 05/27/18 00:00 05/27/18 00:30 Temperature Pulse Rate 71 73 74 Respiratory Rate Blood Pressure 145/69 H 132/66 152/88 H Pulse Oximetry 94 L 93 L 95 05/27/18 01:00 05/27/18 01:07 05/27/18 01:30 Temperature 98.4 F Pulse Rate 70 65 Respiratory Rate Blood Pressure 146/70 H 126/59 L Pulse Oximetry 87 L 96 92 L 05/27/18 02:00 05/27/18 02:30 05/27/18 03:00 Temperature Pulse Rate 64 65 64 Respiratory Rate Blood Pressure 138/65 128/60 112/58 L Pulse Oximetry 93 L 93 L 93 L 05/27/18 03:30 05/27/18 04:00 05/27/18 04:30 Temperature Pulse Rate 63 72 64 Respiratory Rate 0 L 0 L Blood Pressure 141/67 H 141/66 H 144/67 H Pulse Oximetry 95 94 L 92 L 05/27/18 05:00 05/27/18 05:30 05/27/18 06:00 Temperature Pulse Rate 60 63 79 Respiratory Rate 16 Blood Pressure 146/67 H 148/65 H Pulse Oximetry 94 L 92 L 93 L 05/27/18 06:30 05/27/18 07:00 Temperature Pulse Rate 64 64 Respiratory Rate Blood Pressure 153/72 H 173/77 H Pulse Oximetry 92 L 91 L Intake & Output 05/26/18 05/27/18 05/27/18 18:59 06:59 18:59 Intake Total 105 / 105 Output Total 1500 / 1500 550 / 550 Balance -1500 / -1500 -445 / -445 Weight 69.8 kg Intake: IV 105 / 105 Keppra Inj 500 MG In NS Inj 100 105 / 105 ML @ 400 mls/hr IV.SIG ONCE ONE Rx#:[id number] Output: Urine Amount (Catheter) 1500 / 1500 550 / 550 Condom 1500 / 1500 550 / 550 Other: # Incontinent Voids 1 # Bowel Movements 0 Result Diagrams: 05/27/18 04:22 05/27/18 04:22 Objective Remarks: - Constitutional Calm, conversant - Routine HEENT Exam Head: Present: normocephalic, atraumatic Eye: Present: PERRL ENT: Present: mucous membranes moist - Routine Neck Exam Present: supple, full ROM. Airway widely patent, no obstructive noises. Absent : JVD, carotid bruit - Routine Respiratory Exam Lung acosta clear. Comfortable respiratory pattern. Absent: accessory muscle use, wheezes, crackles - Routine Cardiovascular Exam Present: RRR, S1, S2, no JVD. - Routine Abdominal Exam Present: soft, normoactive bowel sounds, nontender, no guarding. - Routine Extremities Exam Warm, well-perfused. Absent: cyanosis, clubbing, edema - Routine Skin Exam Present: intact. Absent: cyanosis, erythema - Routine Neurological Exam Present: Awake, alert, conversant, cooperative. Moves 4 extremities with strength and purpose. Assessment and Plan - Assessment and Plan Plan: Altered mental status -Underlying psychosis -CT head and CTA negative -EEG pending -Neurology evaluation appreciated -Neurochecks per ICU protocol -MRI today. Schizophrenia -Abilify -Divalproex -Psychiatry evaluation in progress. Hypertension -Amlodipine Diabetes mellitus - Metformin - Insulin sliding scale as needed. DVT GI prophylaxis -Teds SCDs -Subcu heparin -Pantoprazole Overall impression: Resolved encephalopathy. Should be able to return to snf after review of MRI by neurology service. I welcome input from psychiatry as to any need to manipulate medications.
--- NOTE | 2018-05-27 10:18 | MR ---
EXAM DATE: 05/27/2018 10:14 AM EST AGE/SEX: 62 years / Male INDICATIONS: Seizures. CLINICAL DATA: This is the patient's initial encounter. Patient reports that signs and symptoms have been present for 1 day and indicates a pain score of 0/10. MEDICAL/SURGICAL HISTORY: Diabetes mellitus type II. Hypertension. None. COMPARISON: [facility], CTA HEAD W CONTRAST W 3D, 05/25/2018. [facility], CT HEAD W/O CONTRAST, 05/25/2018. . TECHNIQUE: Multiplanar, multisequence examination of the brain was performed without contrast. FINDINGS: Cerebrum: The ventricles are normal for age. No evidence of midline shift, mass lesion, hemorrhage or acute infarction. No extraaxial fluid collections are seen. The pituitary gland and suprasellar cistern are normal in configuration. White Matter: No significant signal abnormalities are seen in the white matter. Posterior Fossa: The cerebellum and brainstem are intact. The 4th ventricle is midline. The cerebel lopontine angle is unremarkable. The cerebellar tonsils are normal in position. Diffusion Imaging: No focal areas of restricted diffusion are seen. No evidence of acute infarction . Extracranial: The visualized portions of the orbits and paranasal sinuses are unremarkable. CONCLUSION: 1. Negative MR Brain non contrast. Electronically signed by: Emely García MD Board Certified Radiologist 05/27/2018 10:17 AM Amirah VO
[2018-05-27 11:28] VITALS: BP 180/84; PULSE 68; RESP 39; TEMP 98.3; O2SAT 97
--- NOTE | 2018-05-27 12:19 | P.DS ---
Date of admission: 05/26/18 04:28 Primary care physician: Calixto Oneill Attending physician on discharge: Mark Morales Brief History from admission: 62-year-old gentleman with severe schizophrenia, however well controlled with medications, [facility] resident, went for a walk last night, came back 30 minutes later, had a slurred speech and stumbling ataxic gait. Per paramedics report he was sort of somnolent and he received 1 dose of Narcan without any significant improvement. In the emergency department he presented with stable slurred speech, and mild left-sided weakness and a CAT scan and CTA studies including brain perfusion scan were negative. Just before transportation to CT he became extremely combative with staff and received 1 dose of Ativan, which resulted in somnolence. CT head and CTA studies were negative. The case was discussed with the neurologist on-call, the patient is not a candidate for TPA or any further intervention by neurology or IR. He has been admitted to ICU for frequent neuro checks, an airway observation, possible intubation for an airway protection. Patient update on day of discharge: 05/27: Awake alert interactive conversant this morning. Up in chair eating breakfast. DS: Diagnosis - Discharge Diagnosis (1) Altered mental status Status: Acute (2) Metabolic encephalopathy Status: Acute (3) H/O schizophrenia Status: Acute DS: Summary Hospital Course: 62-year-old gentleman with severe schizophrenia, however well controlled with medications, [facility] resident, went for a walk last night, came back 30 minutes later, had a slurred speech and stumbling ataxic gait. Per paramedics report he was sort of somnolent and he received 1 dose of Narcan without any significant improvement. In the emergency department he presented with stable slurred speech, and mild left-sided weakness and a CAT scan and CTA studies including brain perfusion scan were negative. Just before transportation to CT he became extremely combative with staff and received 1 dose of Ativan, which resulted in somnolence. CT head and CTA studies were negative. The case was discussed with the neurologist on-call, the patient is not a candidate for TPA or any further intervention by neurology or IR. He has been admitted to ICU for frequent neuro checks, an airway observation, possible intubation for an airway protection. 05/27: Awake alert interactive conversant this morning. Up in chair eating breakfast. - Time Spent with Patient Total time spent providing and/or coordinating discharge services: Less than 30 minutes - Quality: VTE Deep Vein Thrombosis/Pulmonary Embolism Present on Admission: No Exam Vital signs: Vital Signs 05/26/18 12:26 05/26/18 12:41 05/26/18 12:56 Temperature Pulse Rate 78 79 77 Respiratory Rate 25 H 28 H 26 H Blood Pressure 179/89 H 162/80 H 173/86 H Pulse Oximetry 97 97 96 05/26/18 13:00 05/26/18 13:11 05/26/18 13:26 Temperature Pulse Rate 78 79 76 Respiratory Rate 23 24 23 Blood Pressure 175/93 H 160/77 H Pulse Oximetry 96 97 97 05/26/18 13:41 05/26/18 13:56 05/26/18 14:00 Temperature Pulse Rate 76 75 75 Respiratory Rate 23 25 H 23 Blood Pressure 173/84 H 159/82 H Pulse Oximetry 99 97 97 05/26/18 14:11 05/26/18 14:26 05/26/18 14:41 Temperature Pulse Rate 75 75 78 Respiratory Rate 25 H 23 21 Blood Pressure 173/89 H 174/86 H 173/101 H Pulse Oximetry 97 98 97 05/26/18 14:48 05/26/18 15:00 05/26/18 15:30 Temperature Pulse Rate 79 77 75 Respiratory Rate 22 23 23 Blood Pressure 173/84 H 171/86 H 159/75 H Pulse Oximetry 99 97 97 05/26/18 16:00 05/26/18 16:09 05/26/18 16:30 Temperature 100.0 F H Pulse Rate 73 74 76 Respiratory Rate 21 21 Blood Pressure 188/86 H 172/79 H 182/83 H Pulse Oximetry 97 97 96 05/26/18 17:00 05/26/18 17:03 05/26/18 17:30 Temperature Pulse Rate 75 75 73 Respiratory Rate Blood Pressure 189/86 H 180/77 H 149/72 H Pulse Oximetry 97 96 96 05/26/18 18:00 05/26/18 18:30 05/26/18 19:00 Temperature Pulse Rate 76 72 71 Respiratory Rate Blood Pressure 157/74 H 160/74 H 166/78 H Pulse Oximetry 99 97 98 05/26/18 19:30 05/26/18 20:00 05/26/18 20:30 Temperature 98.6 F Pulse Rate 72 70 75 Respiratory Rate 18 Blood Pressure 161/76 H 141/112 H 188/80 H Pulse Oximetry 98 95 93 L 05/26/18 20:58 05/26/18 21:00 05/26/18 21:30 Temperature Pulse Rate 71 71 71 Respiratory Rate Blood Pressure 134/64 157/75 H 178/80 H Pulse Oximetry 93 L 94 L 94 L 05/26/18 21:40 05/26/18 22:00 05/26/18 23:00 Temperature Pulse Rate 72 73 Respiratory Rate Blood Pressure 122/58 L 137/62 Pulse Oximetry 95 93 L 94 L 05/26/18 23:30 05/27/18 00:00 05/27/18 00:30 Temperature Pulse Rate 71 73 74 Respiratory Rate Blood Pressure 145/69 H 132/66 152/88 H Pulse Oximetry 94 L 93 L 95 05/27/18 01:00 05/27/18 01:07 05/27/18 01:30 Temperature 98.4 F Pulse Rate 70 65 Respiratory Rate Blood Pressure 146/70 H 126/59 L Pulse Oximetry 87 L 96 92 L 05/27/18 02:00 05/27/18 02:30 05/27/18 03:00 Temperature Pulse Rate 64 65 64 Respiratory Rate Blood Pressure 138/65 128/60 112/58 L Pulse Oximetry 93 L 93 L 93 L 05/27/18 03:30 05/27/18 04:00 05/27/18 04:30 Temperature Pulse Rate 63 72 64 Respiratory Rate 0 L 0 L Blood Pressure 141/67 H 141/66 H 144/67 H Pulse Oximetry 95 94 L 92 L 05/27/18 05:00 05/27/18 05:30 05/27/18 06:00 Temperature Pulse Rate 60 63 79 Respiratory Rate 16 Blood Pressure 146/67 H 148/65 H Pulse Oximetry 94 L 92 L 93 L 05/27/18 06:30 05/27/18 07:00 05/27/18 08:00 Temperature 98.3 F Pulse Rate 64 64 111 H Respiratory Rate Blood Pressure 153/72 H 173/77 H Pulse Oximetry 92 L 91 L 96 05/27/18 08:37 05/27/18 08:38 05/27/18 09:00 Temperature Pulse Rate 90 84 68 Respiratory Rate 47 H 39 H Blood Pressure 208/88 H 180/84 H Pulse Oximetry 98 96 97 05/27/18 11:56 Temperature Pulse Rate Respiratory Rate Blood Pressure Pulse Oximetry 97 Intake & Output 05/26/18 05/27/18 05/27/18 18:59 06:59 18:59 Intake Total 105 / 105 Output Total 1500 / 1500 550 / 550 Balance -1500 / -1500 -445 / -445 Weight 69.8 kg Intake: IV 105 / 105 Keppra Inj 500 MG In NS Inj 100 105 / 105 ML @ 400 mls/hr IV.SIG ONCE ONE Rx#:[id number] Output: Urine Amount (Catheter) 1500 / 1500 550 / 550 Condom 1500 / 1500 550 / 550 Other: # Incontinent Voids 1 # Bowel Movements 0 Narrative: Lungs clear, breathing comfortably Extremities warm and well perfused Neurologic exam nonfocal patient is conversant cooperative interactive and feed self without difficulty. Results Procedures completed during hospitalization: MRI brain CT Head Labs on day of discharge: Labs from last 24 hours 05/27/18 05/27/18 05/27/18 06:11 04:22 04:22 WBC RBC Hgb Hct MCV MCH MCHC RDW Plt Count MPV Neut % (Auto) Lymph % (Auto) [place] % (Auto) Eos % (Auto) Baso % (Auto) Neut # (Auto) Lymph # (Auto) [place] # (Auto) Eos # (Auto) Baso # (Auto) WBC Differential Differential Comment PT 10.8 INR 1.1 APTT 26.1 Sodium 143 Potassium 3.4 L Chloride 108 H Carbon Dioxide 26.7 Anion Gap 8 BUN 11 Creatinine 0.64 Estimated GFR Greater than 89 POC Glucose 99 Random Glucose 94 Calcium 7.8 L Phosphorus 3.4 Magnesium 1.7 Total Bilirubin 0.5 AST 16 ALT 16 Alkaline Phosphatase 49 Total Protein 5.7 L D Albumin 2.8 L 05/27/18 05/26/18 05/26/18 04:22 23:37 20:04 WBC 5.7 RBC 3.87 L Hgb 12.9 L Hct 36.8 L MCV 95.1 MCH 33.2 MCHC 35.0 RDW 13.9 Plt Count 151 MPV 7.6 Neut % (Auto) 58.5 Lymph % (Auto) 31.6 [place] % (Auto) 8.7 H Eos % (Auto) 0.7 Baso % (Auto) 0.5 Neut # (Auto) 3.3 Lymph # (Auto) 1.8 [place] # (Auto) 0.5 Eos # (Auto) 0.0 Baso # (Auto) 0.0 WBC Differential . Differential Comment Auto diff final PT INR APTT Sodium Potassium Chloride Carbon Dioxide Anion Gap BUN Creatinine Estimated GFR POC Glucose 86 90 Random Glucose Calcium Phosphorus Magnesium Total Bilirubin AST ALT Alkaline Phosphatase Total Protein Albumin - Impressions ITS Impressions Chest X-Ray 05/25/18 21:32 CONCLUSION: Negative for acute process Head CT 05/25/18 21:32 CONCLUSION: 1. No acute intracranial abnormality. Report was called by Dr. Simon to Dr. Bailon 9:46 PM] Head CTA 05/25/18 21:32 CONCLUSION: 1. Negative CTA examination of the head. Specifically, no evidence for large vessel occlusion. Report was called by [ ] Dr. Simon to Dr. Clayton at 9:55 PM. Neck CTA 05/25/18 21:32 CONCLUSION: 1. Moderate atherosclerotic calcific vascular disease without hemodynamically significant stenosis, worse on the right than the left. Other calcific plaque I do not see evidence for a source of emboli. CT CAD 05/25/18 21:33 CONCLUSION: Physiological brain perfusion parameters with RAPID analysis as above. The decision for consideration of therapy is multi factorial and multi disciplinary relying on subjective and objective clinical data. This data is not construed or intended to be the sole determinant of treatment eligibility. Carotid Doppler Study 05/26/18 00:00 CONCLUSION: Negative examination for a hemodynamically significant carotid stenosis. Rafael Carson MD FACR Head MRI 05/27/18 00:00 CONCLUSION: 1. Negative MR Brain non contrast. Discharge Plan - Discharge Disposition Patient Disposition: 03 Discharge to SNF - Discharge Condition Condition: Stable - Discharge Order Discharge Orders: Discharge Order (Routine); Ordered 05/27/18 Ordered By: Mark Morales - Discharge Details Anticipated Discharge Date: 05/27/18 - Physicians Team Primary Care Provider: Calixto Oneill Attending Provider: Jhony Coburn Other Providers: Dann Nascimento MD ; Jamari Stark MD ; Arlin Henson DO
== END 2018-05-27 12:42 ==
LOC: NEPC 21:08 → NEDA 05-26 04:28 → N03 05-26 05:49
PROVIDERS: ADMIT Internal Medicine Critical Care Medicine; ATTEND Internal Medicine Critical Care Medicine